=== PATIENT | male | born 1965 | race Caucasian/White ===

== ENCOUNTER → 2016-07-19 | Outpatient (RCR) ==
--- NOTE | 2016-06-20 11:54 | RS.OPPTDN ---
Subjective Date of Note: 06/20/16 Visit #: 3 Date of Evaluation: 06/14/16 Payer Source: Workman's Comp Treatment Diagnosis: Right RCR Current Subjective/complaints:: Patient reports doing well. Reports discomfort at end range with gentle stretching. Pain Assessment - Pain Description Pain Location: Right shoulder Pain Description: nagging pain Current Pain Intensity: 0 at rest - Heat/Cryotherapy Treatment: Hot Pack (HP [id number] to the right shoulder prior to EX. Patient in sitting. ), Cryotherapy ([id number] to the right shoulder following EX. Patient in sitting. ) Interventions - Exercise/Activities/Manual Therapy Exercises/Activities: Increased time of PROM of right shoulder flexion, scaption , abduction, and short IR and ER. Isometrics for shoulder adduction, extension, biceps, and triceps. Assisted scapular protraction/retraction and elevation/ depression. In sitting, table slides and self stretch into flexion and scaption. Reveiwed isometric shoulder add, ext, biceps and triceps in sitting for HEP. Total minutes of Exercise: 40mins Manual Therapy: NA HOME EXERCISE PROGRAM: PROM and gentle isometrics only(7 weeks post-op) - Charges Total Direct Minutes: 40mins Total Treatment Time: 70mins Procedures billed for this date of service:: HP, EX3, CP Assessment: Patient guarded initially but is able to relax and allow more movement with PROM. Patient Education: Education of diagnosis, Body/Joint mechanics, Home Exercise Program, Home Safety, Activity Modification Patient demonstrates compliance with HEP?: Yes Short Term Goals Goal #1: Right AAROM shoulder flexion 120 degrees. Goal to be met by: 07/01/16 Progress towards Goal:: Progressing Goal #2: Right AAROM shoulder abduction 100 degrees. Goal to be met by: 07/01/16 Progress towards Goal:: Progressing Goal #3: Right shoulder AA external rotation 45 degrees. Goal to be met by: 07/01/16 Goal #4: Pateint independent in beginning HEP. Goal to be met by: 07/01/16 Progress towards Goal:: Met [facility] Goals Goal #1: Patient independent with DC HEP. Goal to be met by: 07/22/16 Goal #2: Right shoulder AROM WFLs Goal to be met by: 07/22/16 Goal #3: Patient able to use RUE for all functional activities without pain. Goal to be met by: 07/22/16 Goal #4: Patient able to return to work without restrictions. Goal to be met by: 07/22/16 Plan PLAN OF CARE EXPIRES ON:: 07/22/16 ORDER # VISITS AND/OR THROUGH DATE: 07/22/2016 PLAN: Continue Plan of Care (Continue protocol to increase ROM and progress light isometric and AA exercise.)
--- NOTE | 2016-06-22 14:50 | RS.OPPTDN ---
Subjective Date of Note: 06/22/16 Visit #: 4 Date of Evaluation: 06/14/16 Payer Source: Workman's Comp Treatment Diagnosis: Right RCR Current Subjective/complaints:: Patient reports an increase in soreness in the right shoulder following last session. Reports he is pleased with increase in PROM today. Pain Assessment - Pain Description Pain Location: Right shoulder Pain Description: nagging pain Current Pain Intensity: 0 at rest - Heat/Cryotherapy Treatment: Hot Pack ([id number] to the right shoulder prior to EX. Patient supine. ), Cryotherapy Interventions - Exercise/Activities/Manual Therapy Exercises/Activities: Increased time of PROM of right shoulder flexion, scaption , abduction, and short IR and ER. Isometrics for shoulder adduction, extension, biceps, and triceps. Assisted scapular protraction/retraction and elevation/ depression. In sitting, scap retraction and elevation. Reveiwed Codmans and passive stretch with table slides. Total minutes of Exercise: 40mins Manual Therapy: NA HOME EXERCISE PROGRAM: PROM and gentle isometrics only(7 weeks post-op) - Charges Total Direct Minutes: 40mins Total Treatment Time: 55mins Procedures billed for this date of service:: HP, EX3 Assessment: Patient progressing well with exercise. Patient Education: Home Exercise Program Patient demonstrates compliance with HEP?: Yes Short Term Goals Goal #1: Right AAROM shoulder flexion 120 degrees. Goal to be met by: 07/01/16 Progress towards Goal:: Progressing Goal #2: Right AAROM shoulder abduction 100 degrees. Goal to be met by: 07/01/16 Progress towards Goal:: Progressing Goal #3: Right shoulder AA external rotation 45 degrees. Goal to be met by: 07/01/16 Goal #4: Pateint independent in beginning HEP. Goal to be met by: 07/01/16 Progress towards Goal:: Met Advertising Writer Goals Goal #1: Patient independent with DC HEP. Goal to be met by: 07/22/16 Goal #2: Right shoulder AROM WFLs Goal to be met by: 07/22/16 Goal #3: Patient able to use RUE for all functional activities without pain. Goal to be met by: 07/22/16 Goal #4: Patient able to return to work without restrictions. Goal to be met by: 07/22/16 Plan PLAN OF CARE EXPIRES ON:: 07/22/16 ORDER # VISITS AND/OR THROUGH DATE: 07/22/2016 PLAN: Continue Plan of Care
--- NOTE | 2016-06-24 13:22 | RS.OPPTDN ---
Subjective Date of Note: 06/24/16 Visit #: 5 Date of Evaluation: 06/14/16 Payer Source: Workman's Comp Treatment Diagnosis: Right RCR Current Subjective/complaints:: Patient reports ROM increased following isometrics. Pain Assessment - Pain Description Pain Location: Right shoulder Pain Description: nagging pain Current Pain Intensity: 0 at rest - Heat/Cryotherapy Treatment: Hot Pack ([id number] to the right shoulder prior to EX. Patient in sitting. ) Interventions - Exercise/Activities/Manual Therapy Exercises/Activities: Increased time of PROM of right shoulder flexion, scaption , abduction, and short IR and ER. Isometrics for shoulder adduction, extension, biceps, and triceps. Began isometric shoulder IR and light ER, multiple sets of 5reps. Assisted scapular protraction/retraction and elevation/depression. Reviewed HEP and patient given copies of new EX. Total minutes of Exercise: 45mins Manual Therapy: NA HOME EXERCISE PROGRAM: PROM and gentle isometrics only. - Objective Findings Observations,measurements,etc.: Passive right shoulder flexion to 148 degrees. - Charges Total Direct Minutes: 45mins Total Treatment Time: 60mins Procedures billed for this date of service:: HP, EX3 Assessment: Patient tolerating progression of isometrics with HEP. Patient Education: Home Exercise Program, Home Safety Patient demonstrates compliance with HEP?: Yes Short Term Goals Goal #1: Right AAROM shoulder flexion 120 degrees. Goal to be met by: 07/01/16 Progress towards Goal:: Progressing Goal #2: Right AAROM shoulder abduction 100 degrees. Goal to be met by: 07/01/16 Progress towards Goal:: Progressing Goal #3: Right shoulder AA external rotation 45 degrees. Goal to be met by: 07/01/16 Goal #4: Pateint independent in beginning HEP. Goal to be met by: 07/01/16 Progress towards Goal:: Met [facility] Goals Goal #1: Patient independent with DC HEP. Goal to be met by: 07/22/16 Progress towards goal: Progressing Goal #2: Right shoulder AROM WFLs Goal to be met by: 07/22/16 Goal #3: Patient able to use RUE for all functional activities without pain. Goal to be met by: 07/22/16 Goal #4: Patient able to return to work without restrictions. Goal to be met by: 07/22/16 Plan PLAN OF CARE EXPIRES ON:: 07/22/16 ORDER # VISITS AND/OR THROUGH DATE: 07/22/2016 PLAN: Continue Plan of Care
--- NOTE | 2016-06-27 11:26 | RS.OPPTDN ---
Subjective Date of Note: 06/27/16 Visit #: 6 Date of Evaluation: 06/14/16 Payer Source: Workman's Comp Treatment Diagnosis: Right RCR Current Subjective/complaints:: Patient reports only having aching discomfort , no sharp pain.He reports doing scapular motion with R UE on table top is uncomfortable. Pain Assessment - Pain Description Pain Location: Right shoulder Pain Description: nagging pain Current Pain Intensity: 0 at rest - Heat/Cryotherapy Treatment: Hot Pack (20 mins. priorto exercises) Interventions - Exercise/Activities/Manual Therapy Exercises/Activities: 35 mins total of PROM ,isometrics in all planes, progressed to upright PROM of scaption,abduction,IR/ER.HEP review,and precautions dsicussed at end of sesion. Total minutes of Exercise: 35 Manual Therapy: NA Total minutes of Manual Therapy: 0 HOME EXERCISE PROGRAM: PROM and gentle isometrics only.Biceps/triceps strengthening with elbow at side. - Charges Total Direct Minutes: 35 Total Treatment Time: 55 Procedures billed for this date of service:: hp,ex 2 Assessment: Patient reports stretch discomfort only,no sharp pain with exerises today.He is more guarded today with doing exercises in upright position ,but this is new to him.He does relax more as the exercises progress.He is attentive and motivated to improve. Patient Education: Education of diagnosis, Body/Joint mechanics, Home Exercise Program, Home Safety, Activity Modification, Education of Plan of Care Patient demonstrates compliance with HEP?: Yes Short Term Goals Goal #1: Right AAROM shoulder flexion 120 degrees. Goal to be met by: 07/01/16 Progress towards Goal:: Progressing Goal #2: Right AAROM shoulder abduction 100 degrees. Goal to be met by: 07/01/16 Progress towards Goal:: Progressing Goal #3: Right shoulder AA external rotation 45 degrees. Goal to be met by: 07/01/16 Progress towards Goal:: Progressing Goal #4: Pateint independent in beginning HEP. Goal to be met by: 07/01/16 Progress towards Goal:: Met [facility] Goals Goal #1: Patient independent with DC HEP. Goal to be met by: 07/22/16 Progress towards goal: Progressing Goal #2: Right shoulder AROM WFLs Goal to be met by: 07/22/16 Goal #3: Patient able to use RUE for all functional activities without pain. Goal to be met by: 07/22/16 Goal #4: Patient able to return to work without restrictions. Goal to be met by: 07/22/16 Plan PLAN OF CARE EXPIRES ON:: 07/22/16 ORDER # VISITS AND/OR THROUGH DATE: 07/22/2016 PLAN: Continue Plan of Care
--- NOTE | 2016-06-29 13:26 | RS.OPPTDN ---
Subjective Date of Note: 06/29/16 Visit #: 7 Date of Evaluation: 06/14/16 Payer Source: Workman's Comp Treatment Diagnosis: Right RCR Current Subjective/complaints:: Patient reports feeling good following exercise today. Pain Assessment - Pain Description Pain Location: Right shoulder Pain Description: nagging pain Current Pain Intensity: 0 at rest, discomfort at end range with stretching. - Heat/Cryotherapy Treatment: Hot Pack ([id number] to the right shoulder prior to EX. Patient in supine. ) Interventions - Exercise/Activities/Manual Therapy Exercises/Activities: 45mins total. PROM of the right shoulder all directions. Isometrics in all planes with elbow at side, multiple reps. Progressed to shoulder at 90 degrees flexion for isometric extension, horz add, and horiz abd. Upright PROM of scaption and abduction. Assisted with wand for chest press , short flex/ext, and short IR/ER. Scapular pro/retraction, elevation/ depression. In sitting, table slides and passive flexion and scaption stretch. Total minutes of Exercise: 45mins Manual Therapy: NA HOME EXERCISE PROGRAM: PROM and gentle isometrics only.Biceps/triceps strengthening with elbow at side. Isometric biceps, triceps, shoulde add and extension. - Charges Total Direct Minutes: 45mins Total Treatment Time: 60mins Procedures billed for this date of service:: HP, EX3 Assessment: Patient progressing with active assisted exercises. He is motivated to progress and aware of safety precautions. Patient Education: Home Exercise Program, Home Safety, Activity Modification Patient demonstrates compliance with HEP?: Yes Short Term Goals Goal #1: Right AAROM shoulder flexion 120 degrees. Goal to be met by: 07/01/16 Progress towards Goal:: Progressing Goal #2: Right AAROM shoulder abduction 100 degrees. Goal to be met by: 07/01/16 Progress towards Goal:: Progressing Goal #3: Right shoulder AA external rotation 45 degrees. Goal to be met by: 07/01/16 Progress towards Goal:: Progressing Goal #4: Pateint independent in beginning HEP. Goal to be met by: 07/01/16 Progress towards Goal:: Met Typing Checker Goals Goal #1: Patient independent with DC HEP. Goal to be met by: 07/22/16 Progress towards goal: Progressing Goal #2: Right shoulder AROM WFLs Goal to be met by: 02/03/17 Goal #3: Patient able to use RUE for all functional activities without pain. Goal to be met by: 07/22/16 Goal #4: Patient able to return to work without restrictions. Goal to be met by: 07/22/16 Plan PLAN OF CARE EXPIRES ON:: 07/22/16 ORDER # VISITS AND/OR THROUGH DATE: 07/22/2016 PLAN: Continue Plan of Care
--- NOTE | 2016-07-01 13:16 | RS.OPPTDN ---
Subjective Date of Note: 07/01/16 Visit #: 8 Date of Evaluation: 06/14/16 Payer Source: Workman's Comp Treatment Diagnosis: Right RCR Current Subjective/complaints:: Patient reports ROM has improved since increasing isometrics in therapy. Pain Assessment - Pain Description Pain Location: Right shoulder Pain Description: nagging pain Current Pain Intensity: 0 at rest, discomfort at end range with stretching. - Heat/Cryotherapy Treatment: Hot Pack ([id number] to the right shoulder prior to EX. Patient in sitting. ) Interventions - Exercise/Activities/Manual Therapy Exercises/Activities: 45mins total. PROM of the right shoulder all directions. Isometrics in all planes with elbow at side, multiple reps. Progressed to shoulder at 90 degrees flexion for isometric extension, horz add, and horiz abd. Upright PROM of scaption and abduction. Assisted with wand for chest press , short flex/ext, and short IR/ER. Scapular pro/retraction, elevation/ depression. Ended with additional PROM of the right shoulder. Total minutes of Exercise: 45mins Manual Therapy: NA HOME EXERCISE PROGRAM: PROM and gentle isometrics only.Biceps/triceps strengthening with elbow at side. Isometric biceps, triceps, shoulde add and extension. - Charges Total Direct Minutes: 45mis Total Treatment Time: 50mins Procedures billed for this date of service:: EX3 Assessment: Patient progressing well with exercise and with PROM. Patient Education: Home Exercise Program, Home Safety, Activity Modification Patient demonstrates compliance with HEP?: Yes Short Term Goals Goal #1: Right AAROM shoulder flexion 120 degrees. Goal to be met by: 07/01/16 Progress towards Goal:: Progressing Goal #2: Right AAROM shoulder abduction 100 degrees. Goal to be met by: 07/01/16 Progress towards Goal:: Progressing Goal #3: Right shoulder AA external rotation 45 degrees. Goal to be met by: 07/01/16 Progress towards Goal:: Progressing Goal #4: Pateint independent in beginning HEP. Goal to be met by: 07/01/16 Progress towards Goal:: Met [employer] Assistant Goals Goal #1: Patient independent with DC HEP. Goal to be met by: 07/22/16 Progress towards goal: Progressing Goal #2: Right shoulder AROM WFLs Goal to be met by: 07/22/16 Goal #3: Patient able to use RUE for all functional activities without pain. Goal to be met by: 07/22/16 Goal #4: Patient able to return to work without restrictions. Goal to be met by: 07/22/16 Plan PLAN OF CARE EXPIRES ON:: 07/22/16 ORDER # VISITS AND/OR THROUGH DATE: 07/22/2016 PLAN: Continue Plan of Care
--- NOTE | 2016-07-04 11:32 | RS.OPPTDN ---
Subjective Date of Note: 07/04/16 Visit #: 9 Date of Evaluation: 06/14/16 (Sx. 11-09-16) Payer Source: Workman's Comp Treatment Diagnosis: Right RCR Current Subjective/complaints:: Patient reports right shoulder feels tight today. States he is pleased with ROM after stretching. States he working on HEP as instructed. Pain Assessment - Pain Description Pain Location: Right shoulder Pain Description: nagging pain Current Pain Intensity: 0 at rest, discomfort at end range with stretching. Interventions - Exercise/Activities/Manual Therapy Exercises/Activities: 45mins total. PROM of the right shoulder all directions. Isometrics in all planes with elbow at side, multiple reps. Wand for chest press and short range overhead flexion. Isometrics with right shoulder at 90 degrees flexion. In sitting, PROM into flexion, scaption, abduction, and horizontal abduction. Biceps curl 3#, 3s/10reps. AA flexion in sitting, patient working at approx 25%. Began standing cuff series, 4 direction, 2s/10reps each. Total minutes of Exercise: 45mins Manual Therapy: NA HOME EXERCISE PROGRAM: PROM and gentle isometrics only.Biceps/triceps strengthening with elbow at side. Isometric biceps, triceps, shoulde add and extension. Biceps curl with small weight. Cuff series, no weight. - Charges Total Direct Minutes: 45mins Total Treatment Time: 45mins Procedures billed for this date of service:: EX3 Assessment: Patient progressing well. Patient Education: Home Exercise Program Comments: Reviewed safety. Patient at 10 weeks post-op this week. Patient demonstrates compliance with HEP?: Yes Short Term Goals Goal #1: Right AAROM shoulder flexion 120 degrees. Goal to be met by: 07/01/16 Progress towards Goal:: Progressing Goal #2: Right AAROM shoulder abduction 100 degrees. Goal to be met by: 07/01/16 Progress towards Goal:: Progressing Goal #3: Right shoulder AA external rotation 45 degrees. Goal to be met by: 07/01/16 Progress towards Goal:: Progressing Goal #4: Pateint independent in beginning HEP. Goal to be met by: 07/01/16 Progress towards Goal:: Met [facility] Goals Goal #1: Patient independent with DC HEP. Goal to be met by: 07/22/16 Progress towards goal: Progressing Goal #2: Right shoulder AROM WFLs Goal to be met by: 07/22/16 Goal #3: Patient able to use RUE for all functional activities without pain. Goal to be met by: 07/22/16 Goal #4: Patient able to return to work without restrictions. Goal to be met by: 07/22/16 Plan PLAN OF CARE EXPIRES ON:: 07/22/16 ORDER # VISITS AND/OR THROUGH DATE: 07/22/2016 PLAN: Continue Plan of Care
--- NOTE | 2016-07-06 13:27 | RS.OPPTDN ---
Subjective Date of Note: 07/06/16 Visit #: 10 Date of Evaluation: 06/14/16 (Sx. 11-09-16) Payer Source: Workman's Comp Treatment Diagnosis: Right RCR Current Subjective/complaints:: Patient report increasing his HEP as instructed. States he is working on limited cuff series. Pain Assessment - Pain Description Pain Location: Right shoulder Pain Description: nagging pain Current Pain Intensity: 0 at rest, discomfort at end range with stretching. - Heat/Cryotherapy Treatment: Hot Pack ([id number] to the right shoulder prior to EX. Patient in sitting. ) Interventions - Exercise/Activities/Manual Therapy Exercises/Activities: 45mins total. PROM of the right shoulder all directions. Isometrics in all planes with elbow at side, multiple reps. Wand for chest press and short range overhead flexion. Isometrics with right shoulder at 90 degrees flexion. In sitting, PROM into flexion, scaption, abduction, and horizontal abduction. AAROM with patient participating 25% into flexion, scaption, and extension. Standing cuff series, 4 direction, 2s/10reps each. Began overhead pulleys. Total minutes of Exercise: 45mins Manual Therapy: NA HOME EXERCISE PROGRAM: PROM and gentle isometrics only.Biceps/triceps strengthening with elbow at side. Isometric biceps, triceps, shoulde add and extension. Biceps curl with small weight. Cuff series, no weight. - Charges Total Direct Minutes: 45mins Total Treatment Time: 65mins Procedures billed for this date of service:: HP, EX3 Assessment: Patient progressing with exercise per protocol. Patient Education: Body/Joint mechanics, Home Exercise Program, Activity Modification Comments: Reveiwed safety with HEP. Patient demonstrates compliance with HEP?: Yes Short Term Goals Goal #1: Right AAROM shoulder flexion 120 degrees. Goal to be met by: 07/01/16 Progress towards Goal:: Progressing Goal #2: Right AAROM shoulder abduction 100 degrees. Goal to be met by: 07/01/16 Progress towards Goal:: Progressing Goal #3: Right shoulder AA external rotation 45 degrees. Goal to be met by: 07/01/16 Progress towards Goal:: Progressing Goal #4: Pateint independent in beginning HEP. Goal to be met by: 07/01/16 Progress towards Goal:: Met [facility]ter Goals Goal #1: Patient independent with DC HEP. Goal to be met by: 07/22/16 Progress towards goal: Progressing Goal #2: Right shoulder AROM WFLs Goal to be met by: 07/22/16 Goal #3: Patient able to use RUE for all functional activities without pain. Goal to be met by: 07/22/16 Goal #4: Patient able to return to work without restrictions. Goal to be met by: 07/22/16 Plan PLAN OF CARE EXPIRES ON:: 07/22/16 ORDER # VISITS AND/OR THROUGH DATE: 07/22/2016 PLAN: Continue Plan of Care
--- NOTE | 2016-07-08 10:22 | RS.OPPTDN ---
Subjective Date of Note: 07/08/16 Visit #: 11 Date of Evaluation: 06/14/16 (Sx. 11-09-16) Payer Source: Workman's Comp Treatment Diagnosis: Right RCR Current Subjective/complaints:: Reports doing his HEP regularly. Pain Assessment - Pain Description Pain Location: Right shoulder Pain Description: Dull, Aching Pain Description: nagging pain Current Pain Intensity: 0 at rest, discomfort at end range with stretching. - Heat/Cryotherapy Treatment: Hot Pack (20 miins. to R shoulder ,prior to exercises) Interventions - Exercise/Activities/Manual Therapy Exercises/Activities: 40 mins total. PROM of the right shoulder all directions. Isometrics in all planes with elbow at side, multiple reps. Wand for chest press and short range overhead flexion. Isometrics with right shoulder at 90 degrees flexion. In sitting, PROM into flexion, scaption, abduction, and horizontal abduction. AAROM with patient participating 25% into flexion, scaption, and extension. Standing cuff series, 4 direction, 2s/10reps each.Ended with overhead pulleys. Total minutes of Exercise: 40 Manual Therapy: NA Total minutes of Manual Therapy: 0 HOME EXERCISE PROGRAM: PROM and gentle isometrics only.Biceps/triceps strengthening with elbow at side. Isometric biceps, triceps, shoulde add and extension. Biceps curl with small weight. Cuff series, no weight. - Charges Total Direct Minutes: 40 Total Treatment Time: 60 Procedures billed for this date of service:: hp,ex 3 Assessment: Progressing well,has good return demo of HEP,is compliant to RTC protocol,is 10 1/2 weeks post-op.His ER has firm end feel today,but instructed to not push this motion ,he understands. Patient Education: Education of diagnosis, Body/Joint mechanics, Home Exercise Program, Home Safety, Activity Modification, Education of Plan of Care Patient demonstrates compliance with HEP?: Yes Short Term Goals Goal #1: Right AAROM shoulder flexion 120 degrees. Goal to be met by: 07/01/16 Progress towards Goal:: Progressing Goal #2: Right AAROM shoulder abduction 100 degrees. Goal to be met by: 07/01/16 Progress towards Goal:: Progressing Goal #3: Right shoulder AA external rotation 45 degrees. Goal to be met by: 07/01/16 Progress towards Goal:: Progressing Goal #4: Pateint independent in beginning HEP. Goal to be met by: 07/01/16 Progress towards Goal:: Met [employer] Goals Goal #1: Patient independent with DC HEP. Goal to be met by: 07/22/16 Progress towards goal: Progressing Goal #2: Right shoulder AROM WFLs Goal to be met by: 07/22/16 Goal #3: Patient able to use RUE for all functional activities without pain. Goal to be met by: 07/22/16 Goal #4: Patient able to return to work without restrictions. Goal to be met by: 07/22/16 Plan PLAN OF CARE EXPIRES ON:: 07/22/16 ORDER # VISITS AND/OR THROUGH DATE: 07/22/2016 PLAN: Continue Plan of Care
--- NOTE | 2016-07-11 15:43 | RS.OPPTDN ---
Subjective Date of Note: 07/11/16 Visit #: 12 Date of Evaluation: 06/14/16 (Sx. 11-09-16) Payer Source: Workman's Comp Treatment Diagnosis: Right RCR Current Subjective/complaints:: Patient reports having a rough night and right shoulder is stiff today. Pain Assessment - Pain Description Pain Location: Right shoulder Pain Description: Dull, Aching Pain Description: nagging pain Current Pain Intensity: 0 at rest, discomfort at end range with stretching. - Heat/Cryotherapy Treatment: Hot Pack ([id number] to the right shoulder prior to EX. Patient in sitting. ) Interventions - Exercise/Activities/Manual Therapy Exercises/Activities: 45mins total. PROM of the right shoulder all directions. Isometrics in all planes with elbow at side, multiple reps. Wand for chest press and short range overhead flexion. Isometrics with right shoulder at 90 degrees flexion. In sitting, PROM into flexion, scaption, abduction, and horizontal abduction. AAROM with patient into flexion, scaption, and extension. Began ball on the wall. Ended with overhead pulleys. Total minutes of Exercise: 45mins Manual Therapy: NA HOME EXERCISE PROGRAM: PROM and gentle isometrics only.Biceps/triceps strengthening with elbow at side. Isometric biceps, triceps, shoulde add and extension. Biceps curl with small weight. Cuff series, no weight. - Charges Total Direct Minutes: 45mins Total Treatment Time: 65mins Procedures billed for this date of service:: HP, EX3 Assessment: Patient progressing with AAROM exercises. Patient Education: Body/Joint mechanics, Home Exercise Program, Home Safety, Activity Modification Patient demonstrates compliance with HEP?: Yes Short Term Goals Goal #1: Right AAROM shoulder flexion 120 degrees. Goal to be met by: 07/01/16 (100%) Progress towards Goal:: Met Goal #2: Right AAROM shoulder abduction 100 degrees. Goal to be met by: 07/01/16 Progress towards Goal:: Progressing Goal #3: Right shoulder AA external rotation 45 degrees. Goal to be met by: 07/01/16 Progress towards Goal:: Progressing Goal #4: Pateint independent in beginning HEP. Goal to be met by: 07/01/16 Progress towards Goal:: Met [facility] Goals Goal #1: Patient independent with DC HEP. Goal to be met by: 07/22/16 Progress towards goal: Progressing Goal #2: Right shoulder AROM WFLs Goal to be met by: 07/22/16 Goal #3: Patient able to use RUE for all functional activities without pain. Goal to be met by: 07/22/16 Goal #4: Patient able to return to work without restrictions. Goal to be met by: 07/22/16 Plan PLAN OF CARE EXPIRES ON:: 07/22/16 ORDER # VISITS AND/OR THROUGH DATE: 07/22/2016 PLAN: Continue Plan of Care
--- NOTE | 2016-07-13 11:47 | RS.OPPTDN ---
Subjective Date of Note: 07/13/16 Visit #: 13 Date of Evaluation: 06/14/16 (Sx. 11-09-16) Payer Source: Workman's Comp Treatment Diagnosis: Right RCR Current Subjective/complaints:: Reports he can tell we increased exercises today. States he does not feel he needs heat or ice. Pain Assessment - Pain Description Pain Location: Right shoulder Pain Description: Dull, Aching Pain Description: nagging pain Current Pain Intensity: 0 at rest, discomfort at end range with stretching. Interventions - Exercise/Activities/Manual Therapy Exercises/Activities: 55mins total. PROM of the right shoulder all directions. Isometrics in all planes with elbow at side, multiple reps. Wand for chest press and short range overhead flexion. Isometrics with right shoulder at 90 degrees flexion. Began serratus punch 5# , 3s/10reps. In sitting, PROM into flexion, scaption, abduction, and horizontal abduction. AAROM with patient into flexion, scaption, and extension. Began wand to shoulder height. 1/2# weight for short low level shoulder flexion. Added 1# to cuff series, 2s/10reps x4 directions. Multi-gym station of scap retract 20#, 2s/10reps. Yellow theraband for shoulder range shoulder flex, ext, add, and abd, 2s/10reps each. Blue theraband for scap retraction, 2s/10reps. Total minutes of Exercise: 55mins Manual Therapy: NA HOME EXERCISE PROGRAM: PROM and gentle isometrics only.Biceps/triceps strengthening with elbow at side. Isometric biceps, triceps, shoulder add and extension. Biceps curl with small weight. Cuff series, light weight. Yellow theraband shoulder x4 direct. Blue theraband scap retract. - Charges Total Direct Minutes: 55mins Total Treatment Time: 55mins Procedures billed for this date of service:: EXx4 Assessment: Patient progressing with strengthening exercises. Patient Education: Body/Joint mechanics, Home Exercise Program, Home Safety Patient demonstrates compliance with HEP?: Yes Short Term Goals Goal #1: Right AAROM shoulder flexion 120 degrees. Goal to be met by: 07/01/16 (100%) Progress towards Goal:: Met Goal #2: Right AAROM shoulder abduction 100 degrees. Goal to be met by: 07/01/16 Progress towards Goal:: Progressing Goal #3: Right shoulder AA external rotation 45 degrees. Goal to be met by: 07/01/16 Progress towards Goal:: Progressing Goal #4: Patient independent in beginning HEP. Goal to be met by: 07/01/16 Progress towards Goal:: Met [facility] Goals Goal #1: Patient independent with DC HEP. Goal to be met by: 07/22/16 Progress towards goal: Progressing Goal #2: Right shoulder AROM WFLs Goal to be met by: 07/22/16 Goal #3: Patient able to use RUE for all functional activities without pain. Goal to be met by: 07/22/16 Goal #4: Patient able to return to work without restrictions. Goal to be met by: 07/22/16 Plan PLAN OF CARE EXPIRES ON:: 07/22/16 ORDER # VISITS AND/OR THROUGH DATE: 07/22/2016 PLAN: Continue Plan of Care
--- NOTE | 2016-07-15 11:25 | RS.OPPTDN ---
Subjective Date of Note: 07/15/16 Visit #: 14 Date of Evaluation: 06/14/16 (Sx. 11-09-16) Payer Source: Workman's Comp Treatment Diagnosis: Right RCR Current Subjective/complaints:: Patient asks for HP prior to EX. States he feels he does better. Reports fatigue after resistve exercise but is glad to progress exercise. Pain Assessment - Pain Description Pain Location: Right shoulder Pain Description: Dull, Aching Pain Description: nagging pain Current Pain Intensity: 0 at rest, discomfort at end range with stretching. - Heat/Cryotherapy Treatment: Hot Pack ([id number] to the right shoulder prior to EX. Patient in sitting. ) Interventions - Exercise/Activities/Manual Therapy Exercises/Activities: 55mins total. Increased time on PROM of the right shoulder all directions, including contract/relax. Isometrics in all planes with elbow at side, multiple reps. 3# wand for chest press and short range overhead flexion. Isometrics with right shoulder at 90 degrees flexion. Serratus punch holding 4# ball with UE's, 2s/10reps. Began red theraband for shoulder extension and forward press, supine, 2s/10reps each. In sitting, PROM into flexion, scaption, abduction, and horizontal abduction. AAROM with patient into flexion, scaption, and extension. Wand to shoulder height. in sitting, red theraband for right scap retraction and forward press, 10reps each. Total minutes of Exercise: 55mins Manual Therapy: NA HOME EXERCISE PROGRAM: PROM and gentle isometrics only.Biceps/triceps strengthening with elbow at side. Isometric biceps, triceps, shoulder add and extension. Biceps curl with small weight. Cuff series, light weight. Yellow theraband shoulder x4 direct. Blue theraband scap retract. - Charges Total Direct Minutes: 55mins Total Treatment Time: 67mins Procedures billed for this date of service:: HP, EX4 Assessment: Patient progressing with ROM and strengthening activity. Patient Education: Body/Joint mechanics, Home Exercise Program, Home Safety, Activity Modification Patient demonstrates compliance with HEP?: Yes Short Term Goals Goal #1: Right AAROM shoulder flexion 120 degrees. Goal to be met by: 07/01/16 (100%) Progress towards Goal:: Met Goal #2: Right AAROM shoulder abduction 100 degrees. Goal to be met by: 07/01/16 (100%) Progress towards Goal:: Met Goal #3: Right shoulder AA external rotation 45 degrees. Goal to be met by: 07/01/16 (100%) Progress towards Goal:: Met Goal #4: Patient independent in beginning HEP. Goal to be met by: 07/01/16 (100%) Progress towards Goal:: Met [employer] Goals Goal #1: Patient independent with DC HEP. Goal to be met by: 07/22/16 Progress towards goal: Progressing Goal #2: Right shoulder AROM WFLs Goal to be met by: 07/22/16 Goal #3: Patient able to use RUE for all functional activities without pain. Goal to be met by: 07/22/16 Progress towards goal: Progressing Goal #4: Patient able to return to work without restrictions. Goal to be met by: 07/22/16 Plan PLAN OF CARE EXPIRES ON:: 07/22/16 ORDER # VISITS AND/OR THROUGH DATE: 07/22/2016 PLAN: Continue Plan of Care
--- NOTE | 2016-07-19 13:19 | RS.OPPTDN ---
Subjective Date of Note: 07/19/16 Visit #: 15 Date of Evaluation: 06/14/16 (Sx. 11-09-16) Payer Source: Workman's Comp Treatment Diagnosis: Right RCR Current Subjective/complaints:: Patient reports stiffness right shoulder joint with ROM, but progressing exercise. Pain Assessment - Pain Description Pain Location: Right shoulder Pain Description: Dull, Aching Pain Description: nagging pain Current Pain Intensity: 0 at rest, discomfort at end range with stretching. - Heat/Cryotherapy Treatment: Hot Pack ([id number] to the right shoulder prior to EX. Patient in sitting. ) Interventions - Exercise/Activities/Manual Therapy Exercises/Activities: 55mins total. Increased time on PROM of the right shoulder all directions, including contract/relax. Isometrics in all planes with elbow at side, multiple reps. 3# wand for chest press and short range overhead flexion. Isometrics with right shoulder at 90 degrees flexion. Serratus punch 5# dumbell, 2s/10reps. Red theraband for shoulder flexion, extension and forward press. Holding 2# ball at 90 degrees shoulder flexion for proprioception exercise. In sitting, PROM into flexion, scaption, abduction, and horizontal abduction. AAROM with patient into flexion, scaption, and extension. Wand to shoulder height. In standing, multi-gym for scap retraction 20#, 2s/10reps. Modified wall push-ups. Red theraband for shoulder x4 dirctions 10reps each. Total minutes of Exercise: 55mins Manual Therapy: NA HOME EXERCISE PROGRAM: PROM and gentle isometrics only.Biceps/triceps strengthening with elbow at side. Isometric biceps, triceps, shoulder add and extension. Biceps curl with small weight. Cuff series, 1# weight. Red theraband shoulder x4 direct. Blue theraband scap retract. - Charges Total Direct Minutes: 55mins Total Treatment Time: 70mins Procedures billed for this date of service:: HP, EX4 Assessment: Patient progressing with light strengtheing. Patient Education: Body/Joint mechanics, Home Exercise Program, Home Safety, Activity Modification Patient demonstrates compliance with HEP?: Yes Short Term Goals Goal #1: Right AAROM shoulder flexion 120 degrees. Goal to be met by: 07/01/16 (100%) Progress towards Goal:: Met Goal #2: Right AAROM shoulder abduction 100 degrees. Goal to be met by: 07/01/16 (100%) Progress towards Goal:: Met Goal #3: Right shoulder AA external rotation 45 degrees. Goal to be met by: 07/01/16 (100%) Progress towards Goal:: Met Goal #4: Patient independent in beginning HEP. 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 Goal to be met by: 07/22/16 Progress towards goal: Progressing Goal #2: Right shoulder AROM WFLs Goal to be met by: 07/22/16 Goal #3: Patient able to use RUE for all functional activities without pain. Goal to be met by: 07/22/16 Progress towards goal: Progressing Goal #4: Patient able to return to work without restrictions. Goal to be met by: 07/22/16 Plan PLAN OF CARE EXPIRES ON:: 07/22/16 ORDER # VISITS AND/OR THROUGH DATE: 07/22/2016 PLAN: Continue Plan of Care
== END ==
PROVIDERS: ATTEND Orthopaedic Surgery
DX: S46.011D Strain of muscle(s) and tendon(s) of the rotator cuff of right shoulder, subsequent encounter (principal)

== ENCOUNTER 2016-08-15 10:00 | Outpatient (RCR) ==
--- NOTE | 2016-07-20 12:12 | RS.OPPTDN ---
Subjective Date of Note: 07/20/16 Visit #: 16 Date of Evaluation: 06/14/16 (Sx. 11-09-16) Payer Source: Workman's Comp Treatment Diagnosis: Right RCR Current Subjective/complaints:: Reports right shoulder joint tightness that limits some movement with exercise. Pain Assessment - Pain Description Pain Location: Right shoulder Pain Description: nagging pain Current Pain Intensity: 0 at rest, discomfort at end range with stretching. - Heat/Cryotherapy Treatment: Hot Pack ([id number] to the right shoulder prior to EX. Patient in sitting. ) Interventions - Exercise/Activities/Manual Therapy Exercises/Activities: 48mins total. Increased time on PROM of the right shoulder all directions, including contract/relax. Isometrics in all planes with UE at neutral and with shoulder at 90 degrees flexion and abduction. 3# wand for chest press and short range overhead flexion. Serratus punch 5# dumbell , 2s/10reps. Red theraband for shoulder flexion, extension, forward press, IR and ER. Holding 2# ball at 90 degrees shoulder flexion for proprioception exercise. In standing, multi-gym for scap retraction 20#, 3s/10reps. Right shoulder extension with 5# 2s/10reps. Modified wall push-ups. Red theraband for shoulder x4 directions 10reps each. Doorway chest stretch, 3 positions. Total minutes of Exercise: 48mins Manual Therapy: NA HOME EXERCISE PROGRAM: PROM and gentle isometrics only.Biceps/triceps strengthening with elbow at side. Isometric biceps, triceps, shoulder add and extension. Biceps curl with small weight. Cuff series, 1# weight. Red theraband shoulder x4 direct. Blue theraband scap retract. - Charges Total Direct Minutes: 48mins Total Treatment Time: 63mins Procedures billed for this date of service:: HP, EX3 Assessment: Patient progressing well with strengthening. Will need to increase end ROM to further AROM and functional activities. Patient Education: Education of diagnosis, Body/Joint mechanics, Home Exercise Program Patient demonstrates compliance with HEP?: Yes Short Term Goals Goal #1: Right AAROM shoulder flexion 120 degrees. Goal to be met by: 07/01/16 (100%) Progress towards Goal:: Met Goal #2: Right AAROM shoulder abduction 100 degrees. Goal to be met by: 07/01/16 (100%) Progress towards Goal:: Met Goal #3: Right shoulder AA external rotation 45 degrees. Goal to be met by: 07/01/16 (100%) Progress towards Goal:: Met Goal #4: Patient independent in beginning HEP. Goal to be met by: 07/01/16 (100%) Progress towards Goal:: Met [facility] Goals Goal #1: Patient independent with DC HEP. Goal to be met by: 07/22/16 Progress towards goal: Progressing Goal #2: Right shoulder AROM WFLs Goal to be met by: 07/22/16 Goal #3: Patient able to use RUE for all functional activities without pain. Goal to be met by: 07/22/16 Progress towards goal: Progressing Goal #4: Patient able to return to work without restrictions. Goal to be met by: 07/22/16 Plan PLAN OF CARE EXPIRES ON:: 07/22/16 ORDER # VISITS AND/OR THROUGH DATE: 07/22/2016 PLAN: Continue Plan of Care (Continue this week. Will take ROM measurements and report progress to physician. Patient may continue therapy as needed with continuation orders from physician.)
--- NOTE | 2016-07-22 11:32 | RS.OPPTDN ---
Subjective Date of Note: 07/22/16 Visit #: 17 Date of Evaluation: 06/14/16 (Sx. 11-09-16) Payer Source: Workman's Comp Treatment Diagnosis: Right RCR Current Subjective/complaints:: Patient reports he saw [facility] [employer] and was told he is on track with progress. States he has orders to continue and progress strengthening. Pain Assessment - Pain Description Pain Location: Right shoulder Pain Description: nagging pain Current Pain Intensity: 0 at rest, discomfort at end range with stretching. - Heat/Cryotherapy Treatment: Hot Pack ([id number] to the right shoulder prior to EX. Patient in sitting. ) Interventions - Exercise/Activities/Manual Therapy Exercises/Activities: 45mins total. Increased time on PROM of the right shoulder all directions, including contract/relax. Isometrics in all planes with UE at neutral and with shoulder at 90 degrees flexion and abduction. 3# wand for chest press and short range overhead flexion. Serratus punch 5# dumbell , 2s/10reps. Red theraband for shoulder flexion, extension, forward press, IR and ER. Holding 2# ball at 90 degrees shoulder flexion for random proprioception and controlled circles. In sitting, yellow theraband bilateral shoulder ER, 3s/10reps. 1# wand for flexion to just above shoulder height, multiple reps. Cuff series 1#, 4 directions. In standing, multi-gym for scap retraction 20#, 3s/10reps. Modified wall push-ups. Large ball on the wall overhead work. Doorway chest stretch, 3 positions. Total minutes of Exercise: 45mins Manual Therapy: NA HOME EXERCISE PROGRAM: PROM and gentle isometrics only.Biceps/triceps strengthening with elbow at side. Isometric biceps, triceps, shoulder add and extension. Biceps curl with small weight. Cuff series, 1# weight. Red theraband shoulder x4 direct. Blue theraband scap retract. - Charges Total Direct Minutes: 45mins Total Treatment Time: 60mins Procedures billed for this date of service:: HP, EX3 Assessment: Patient progressing with strengthening. Patient Education: Body/Joint mechanics, Home Exercise Program, Activity Modification Patient demonstrates compliance with HEP?: Yes Short Term Goals Goal #1: Right AAROM shoulder flexion 120 degrees. Goal to be met by: 07/01/16 (100%) Progress towards Goal:: Met Goal #2: Right AAROM shoulder abduction 100 degrees. Goal to be met by: 07/01/16 (100%) Progress towards Goal:: Met Goal #3: Right shoulder AA external rotation 45 degrees. Goal to be met by: 07/01/16 (100%) Progress towards Goal:: Met Goal #4: Patient independent in beginning HEP. 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 Goal to be met by: 08/25/16 Progress towards goal: Progressing Goal #2: Right shoulder AROM WFLs Goal to be met by: 08/25/16 Goal #3: Patient able to use RUE for all functional activities without pain. Goal to be met by: 08/25/16 Progress towards goal: Progressing Goal #4: Patient able to return to work without restrictions. Goal to be met by: 08/25/16 Plan PLAN OF CARE EXPIRES ON:: 08/25/16 ORDER # VISITS AND/OR THROUGH DATE: 08/25/2016 PLAN: Continue Plan of Care (Continue and progress strengthening.)
--- NOTE | 2016-07-25 11:27 | RS.OPPTDN ---
Subjective Date of Note: 07/25/16 Visit #: 18 Date of Evaluation: 06/14/16 (Sx. 11-09-16) Payer Source: Workman's Comp Treatment Diagnosis: Right RCR Current Subjective/complaints:: Patient reports his active motion seems to be improving. Pain Assessment - Pain Description Pain Location: Right shoulder Pain Description: nagging pain Current Pain Intensity: 0 at rest, discomfort at end range with stretching. - Heat/Cryotherapy Treatment: Hot Pack ([id number] to the right shoulder prior to EX. Patient in sitting. ) Interventions - Exercise/Activities/Manual Therapy Exercises/Activities: 55mins total. Increased time on PROM of the right shoulder all directions, with patient in supine. Isometrics for contract/relax and stretching. Isometrics in all planes with UE at neutral and with shoulder at 90 degrees flexion and abduction. Increased to 5# wand for chest press and short range overhead flexion. Serratus punch, 2s/10reps. Red theraband for shoulder flexion, extension, forward press, IR and ER. Holding 4# ball at 90 degrees shoulder flexion for random lateral/horizontal abduction. In sitting, AAROM flexion, scaption, and abduction. 1# wand for flexion and abduction to just above shoulder height, multiple reps. Green theraband for scapular retraction, 3s/10reps. In standing, multi-gym for scap retraction 20#, 3s/ 10reps. Cable janina for chest press 5#, 3s/10reps. Ball on the wall with large ball overhead side to side. Doorway chest stretch, 3 positions. Total minutes of Exercise: 55mins Manual Therapy: NA HOME EXERCISE PROGRAM: PROM and gentle isometrics only.Biceps/triceps strengthening with elbow at side. Isometric biceps, triceps, shoulder add and extension. Biceps curl with small weight. Cuff series, 1# weight. Red theraband shoulder x4 direct. Blue theraband scap retract. - Charges Total Direct Minutes: 55mins Total Treatment Time: 70mins Procedures billed for this date of service:: HP, EX4 Assessment: Patient progressing with active and active assist exercises. Patient Education: Home Exercise Program, Home Safety Patient demonstrates compliance with HEP?: Yes Short Term Goals Goal #1: Right AAROM shoulder flexion 120 degrees. Goal to be met by: 07/01/16 (100%) Progress towards Goal:: Met Goal #2: Right AAROM shoulder abduction 100 degrees. Goal to be met by: 07/01/16 (100%) Progress towards Goal:: Met Goal #3: Right shoulder AA external rotation 45 degrees. Goal to be met by: 07/01/16 (100%) Progress towards Goal:: Met Goal #4: Patient independent in beginning HEP. 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 Goal to be met by: 08/25/16 Progress towards goal: Progressing Goal #2: Right shoulder AROM WFLs Goal to be met by: 08/25/16 Progress towards goal: Progressing Goal #3: Patient able to use RUE for all functional activities without pain. Goal to be met by: 08/25/16 Progress towards goal: Progressing Goal #4: Patient able to return to work without restrictions. Goal to be met by: 08/25/16 Plan PLAN OF CARE EXPIRES ON:: 08/25/16 ORDER # VISITS AND/OR THROUGH DATE: 08/25/2016 PLAN: Continue Plan of Care
--- NOTE | 2016-07-27 15:38 | RS.OPPTDN ---
Subjective Date of Note: 07/27/16 Visit #: 19 Date of Evaluation: 06/14/16 (Sx. 11-09-16) Payer Source: Workman's Comp Treatment Diagnosis: Right RCR Current Subjective/complaints:: Patient reports increased soreness right shoulder joint since last session. Pain Assessment - Pain Description Pain Location: Right shoulder Pain Description: nagging pain Current Pain Intensity: 0 at rest, discomfort at end range with stretching. - Heat/Cryotherapy Treatment: Hot Pack ([id number] to the right shoulder prior to EX. Patient in sitting. ) Interventions - Exercise/Activities/Manual Therapy Exercises/Activities: 50mins total. Increased time on PROM of the right shoulder all directions, with patient in supine. Isometrics for contract/relax and stretching. Isometrics in all planes with UE at neutral and with shoulder at 90 degrees flexion and abduction. 5# wand for chest press and short range overhead flexion. Serratus punch with 5# dumbell, 2s/10reps. Red theraband for shoulder flexion, extension, forward press, IR and ER. Red theraband for UE diagonals, 2 directions, 2s/10reps each. Holding 5# ball at 90 degrees shoulder flexion for random lateral/horizontal abduction. In sitting, AAROM flexion, scaption, and abduction. 4# wand for flexion and abduction to just above shoulder height, multiple reps. 1# dumbell for flexion, scaption, and abduction. In standing, green theraband for scapular retraction, 3s/10reps. In standing, multi-gym for scap retraction 20#, 3s/10reps and 30# 1s/10reps. Cable janina for chest press 5#, 3s/10reps. Ball on the wall, 1 1/2# cuff to right wrist, with large ball overhead side to side. Doorway chest stretch, 3 positions and overhead UE stretch at multigym. Red theraband for overhead flexion and extension. Total minutes of Exercise: 50mins Manual Therapy: NA HOME EXERCISE PROGRAM: PROM and gentle isometrics only. Biceps/triceps strengthening with elbow at side. Isometric biceps, triceps, shoulder add and extension. Biceps curl with small weight. Cuff series, 1# weight. Red theraband shoulder x4 direct. Blue theraband scap retract. Red theraband for overhead flexion and extension. Resistive shoulder ROM with light weights. - Charges Total Direct Minutes: 50mins Total Treatment Time: 50mins Procedures billed for this date of service:: EX3 Assessment: Patient progressing with strengthening exercise and active motion above shoulder height. Patient Education: Home Exercise Program, Home Safety, Activity Modification Patient demonstrates compliance with HEP?: Yes Short Term Goals Goal #1: Right AAROM shoulder flexion 120 degrees. Goal to be met by: 07/01/16 (100%) Progress towards Goal:: Met Goal #2: Right AAROM shoulder abduction 100 degrees. Goal to be met by: 07/01/16 (100%) Progress towards Goal:: Met Goal #3: Right shoulder AA external rotation 45 degrees. Goal to be met by: 07/01/16 (100%) Progress towards Goal:: Met Goal #4: Patient independent in beginning HEP. Goal to be met by: 07/01/16 (100%) Progress towards Goal:: Met Cracker Dough Mixer Goals Goal #1: Patient independent with DC HEP. Goal to be met by: 08/25/16 Progress towards goal: Progressing Goal #2: Right shoulder AROM WFLs Goal to be met by: 08/25/16 Progress towards goal: Progressing Goal #3: Patient able to use RUE for all functional activities without pain. Goal to be met by: 08/25/16 Progress towards goal: Progressing Goal #4: Patient able to return to work without restrictions. Goal to be met by: 08/25/16 Progress towards goal: Not Met Plan PLAN OF CARE EXPIRES ON:: 08/25/16 ORDER # VISITS AND/OR THROUGH DATE: 08/25/2016 PLAN: Continue Plan of Care (Continue and progress AROM and strengthening.)
--- NOTE | 2016-07-29 15:33 | RS.OPPTDN ---
Subjective Date of Note: 07/29/16 Visit #: 20 Date of Evaluation: 06/14/16 (Sx. 11-09-16) Payer Source: Workman's Comp Treatment Diagnosis: Right RCR Current Subjective/complaints:: Patient reports exercise going well but he is concerned with tightness at end range. Pain Assessment - Pain Description Pain Location: Right shoulder Pain Description: nagging pain Current Pain Intensity: 0 at rest, discomfort at end range with stretching. - Heat/Cryotherapy Treatment: Hot Pack ([id number] to right shoulder prior to EX. Patient in sitting. ) Interventions - Exercise/Activities/Manual Therapy Exercises/Activities: 50mins total. Increased time on PROM of the right shoulder all directions, with patient in supine. Isometrics for contract/relax and stretching. Isometrics in all planes with UE at neutral and with shoulder at 90 degrees flexion and abduction. 5# wand for chest press and short range overhead flexion. Serratus punch with 5# dumbell, 3s/10reps. Red theraband for shoulder flexion, extension, forward press, IR and ER. In standing, AAROM flexion, scaption, and abduction. 1# wand for flexion and abduction to just above shoulder height, multiple reps. 1# dumbell for flexion, scaption, and abduction. In standing, multi-gym for scap retraction increased to 30#, 3s/ 10reps. Cable janina for chest press 5#, 3s/10reps. Ball on the wall, 1 1/2# cuff to each wrist, with large ball overhead side to side. Wall push-ups. Doorway chest stretch, 3 positions. Total minutes of Exercise: 50mins Manual Therapy: NA HOME EXERCISE PROGRAM: PROM and gentle isometrics only. Biceps/triceps strengthening with elbow at side. Isometric biceps, triceps, shoulder add and extension. Biceps curl with small weight. Cuff series, 1# weight. Red theraband shoulder x4 direct. Blue theraband scap retract. Red theraband for overhead flexion and extension. Resistive shoulder ROM with light weights. - Objective Findings Observations,measurements,etc.: Active right shoulder flexion to 117 degrees and AA flexion to 127 degrees. - Charges Total Direct Minutes: 50mins Total Treatment Time: 65mins Procedures billed for this date of service:: HP, EX3 Assessment: Patient progressing with exercise and with active motion of the right shoulder. Ermias;l need to continue to work on passive stretching at home. Patient Education: Home Exercise Program Patient demonstrates compliance with HEP?: Yes Short Term Goals Goal #1: Right AAROM shoulder flexion 120 degrees. Goal to be met by: 07/01/16 (100%) Progress towards Goal:: Met Goal #2: Right AAROM shoulder abduction 100 degrees. Goal to be met by: 07/01/16 (100%) Progress towards Goal:: Met Goal #3: Right shoulder AA external rotation 45 degrees. Goal to be met by: 07/01/16 (100%) Progress towards Goal:: Met Goal #4: Patient independent in beginning HEP. Goal to be met by: 07/01/16 (100%) Progress towards Goal:: Met Alf Goals Goal #1: Patient independent with DC HEP. Goal to be met by: 08/25/16 Progress towards goal: Progressing Goal #2: Right shoulder AROM WFLs Goal to be met by: 08/25/16 Progress towards goal: Progressing Goal #3: Patient able to use RUE for all functional activities without pain. Goal to be met by: 08/25/16 Progress towards goal: Progressing Goal #4: Patient able to return to work without restrictions. Goal to be met by: 08/25/16 Progress towards goal: Not Met Plan PLAN OF CARE EXPIRES ON:: 08/25/16 ORDER # VISITS AND/OR THROUGH DATE: 08/25/2016 PLAN: Continue Plan of Care (Contineu and progress strength and ROM)
--- NOTE | 2016-08-01 11:31 | RS.OPPTDN ---
Subjective Date of Note: 08/01/16 Visit #: 21 Date of Evaluation: 06/14/16 (Sx. 11-09-16) Payer Source: Workman's Comp Treatment Diagnosis: Right RCR Current Subjective/complaints:: Patient reports joint stiffness is a concern. States he is increasing light and moderate activities at home. Pain Assessment - Pain Description Pain Location: Right shoulder Pain Description: nagging pain Current Pain Intensity: 0 at rest, discomfort at end range with stretching. - Heat/Cryotherapy Treatment: Hot Pack ([id number] to the right shoulder joint prior to Ex. patient in sitting. ) Interventions - Exercise/Activities/Manual Therapy Exercises/Activities: 45mins total. Pent most of time on PROM of the right shoulder all directions, with patient in supine. Isometrics for contract/relax and stretching. Isometrics in all planes with UE at neutral and with shoulder at 90 degrees flexion and abduction. In standing, AAROM flexion, scaption, and abduction. 1# wand for flexion and abduction to just above shoulder height, multiple reps. 1# dumbell for flexion and scaption, standing at wall. In standing, multi-gym for scap retraction 30#, increased to 4s/10reps. Cable janina for chest press 5#, 4s/10reps, and retraction 3s/10reps. Wall push-ups. Doorway chest stretch, 3 positions. Total minutes of Exercise: 45mins Manual Therapy: NA HOME EXERCISE PROGRAM: PROM and gentle isometrics only. Biceps/triceps strengthening with elbow at side. Isometric biceps, triceps, shoulder add and extension. Biceps curl with small weight. Cuff series, 1# weight. Red theraband shoulder x4 direct. Blue theraband scap retract. Red theraband for overhead flexion and extension. Resistive shoulder ROM with light weights. - Objective Findings Observations,measurements,etc.: During passive stretching right shoulder ER progresssed to 90 degrees passively. - Charges Total Direct Minutes: 45mins Total Treatment Time: 60mins Procedures billed for this date of service:: HP, EX3 Assessment: Focus on PROM/stretching today to increased flexibility. Patient Education: Home Exercise Program Patient demonstrates compliance with HEP?: Yes Short Term Goals Goal #1: Right AAROM shoulder flexion 120 degrees. Goal to be met by: 07/01/16 (100%) Progress towards Goal:: Met Goal #2: Right AAROM shoulder abduction 100 degrees. Goal to be met by: 07/01/16 (100%) Progress towards Goal:: Met Goal #3: Right shoulder AA external rotation 45 degrees. Goal to be met by: 07/01/16 (100%) Progress towards Goal:: Met Goal #4: Patient independent in beginning HEP. Goal to be met by: 07/01/16 (100%) Progress towards Goal:: Met Waterfront Director Goals Goal #1: Patient independent with DC HEP. Goal to be met by: 08/25/16 Progress towards goal: Progressing Goal #2: Right shoulder AROM WFLs Goal to be met by: 08/25/16 Progress towards goal: Progressing Goal #3: Patient able to use RUE for all functional activities without pain. Goal to be met by: 08/25/16 Progress towards goal: Progressing Goal #4: Patient able to return to work without restrictions. Goal to be met by: 08/25/16 Progress towards goal: Not Met Plan PLAN OF CARE EXPIRES ON:: 08/25/16 ORDER # VISITS AND/OR THROUGH DATE: 08/25/2016 PLAN: Continue Plan of Care
--- NOTE | 2016-08-03 11:23 | RS.OPPTDN ---
Subjective Date of Note: 08/03/16 Visit #: 22 Date of Evaluation: 06/14/16 (Sx. 11-09-16) Payer Source: Workman's Comp Treatment Diagnosis: Right RCR Current Subjective/complaints:: Patient reports joint stiffness is concerning him. Reports he is progresing well with strengthening below shoulder height. Pain Assessment - Pain Description Pain Location: Right shoulder Pain Description: nagging pain Current Pain Intensity: 0 at rest, discomfort at end range with stretching. - Heat/Cryotherapy Treatment: Hot Pack ([id number] to the right shoulder prior to EX. Patient in sitting. ) Interventions - Exercise/Activities/Manual Therapy Exercises/Activities: 55mins total. Continued to focus time on PROM of the right shoulder all directions, with patient in supine. Isometrics for contract/ relax and stretching. Isometrics in all planes with UE at neutral and with shoulder at 90 degrees flexion and abduction. 1# dumbell flexion and scaption. Red theraband for shoulder flex, ext, and ER. Ball toss/chest pass in supine. In sitting, AAROM flexion, scaption, and abduction. 1# wand for flexion and abduction to just above shoulder height, multiple reps. 1# dumbell for flexion and scaption. Red theraband for right scap retraction and chest press. In standing, multi-gym for scap retraction 30#, increased to 3s/10reps. Cable janina for chest press 5#, 4s/10reps, and retraction 3s/10reps. Yellow theraband for overhead forward flexion/baseball throw position. 1# dumbell for overhead chest press. Large ball on wall overhead. Doorway chest stretch, 3 positions. Total minutes of Exercise: 55mins Manual Therapy: NA HOME EXERCISE PROGRAM: PROM and gentle isometrics only. Biceps/triceps strengthening with elbow at side. Isometric biceps, triceps, shoulder add and extension. Biceps curl with small weight. Cuff series, 1# weight. Red theraband shoulder x4 direct. Blue theraband scap retract. Red theraband for overhead flexion and extension. Resistive shoulder ROM with light weights. - Charges Total Direct Minutes: 55mins Total Treatment Time: 70mins Procedures billed for this date of service:: HP, EX4 Assessment: Patient progressing with strengthening and we are increasing focus on end range stretch and AROM above shoulder height. Patient Education: Education of diagnosis, Body/Joint mechanics, Home Exercise Program Patient demonstrates compliance with HEP?: Yes Short Term Goals Goal #1: Right AAROM shoulder flexion 120 degrees. Goal to be met by: 07/01/16 (100%) Progress towards Goal:: Met Goal #2: Right AAROM shoulder abduction 100 degrees. Goal to be met by: 07/01/16 (100%) Progress towards Goal:: Met Goal #3: Right shoulder AA external rotation 45 degrees. Goal to be met by: 07/01/16 (100%) Progress towards Goal:: Met Goal #4: Patient independent in beginning HEP. Goal to be met by: 07/01/16 (100%) Progress towards Goal:: Met Correction Goals Goal #1: Patient independent with DC HEP. Goal to be met by: 08/25/16 Progress towards goal: Progressing Goal #2: Right shoulder AROM WFLs Goal to be met by: 08/25/16 Progress towards goal: Progressing Goal #3: Patient able to use RUE for all functional activities without pain. Goal to be met by: 08/25/16 Progress towards goal: Progressing Goal #4: Patient able to return to work without restrictions. Goal to be met by: 08/25/16 Progress towards goal: Not Met Plan PLAN OF CARE EXPIRES ON:: 08/25/16 ORDER # VISITS AND/OR THROUGH DATE: 08/25/2016 PLAN: Continue Plan of Care
--- NOTE | 2016-08-05 12:56 | RS.OPPTDN ---
Subjective Date of Note: 08/05/16 Visit #: 23 Date of Evaluation: 06/14/16 (Sx. 11-09-16) Payer Source: Workman's Comp Treatment Diagnosis: Right RCR Current Subjective/complaints:: Patient reports continued stiffness right shoulder joint that is limiting active motion. Pain Assessment - Pain Description Pain Location: Right shoulder Pain Description: nagging pain Current Pain Intensity: 0 at rest, discomfort at end range with stretching. - Heat/Cryotherapy Treatment: Hot Pack ([id number] to the right shoulde prior to EX. Patient in sitting. ) Interventions - Exercise/Activities/Manual Therapy Exercises/Activities: 57mins total. Continued to focus time on PROM of the right shoulder all directions, with patient in supine. Isometrics for contract/ relax and stretching. Isometrics in all planes with UE at neutral and with shoulder at 90 degrees flexion and abduction. 1# dumbell flexion and scaption. Red theraband for shoulder flex, ext, and ER. Increased to 5# wand for flexion and chest press. Addidtional stretching. In sitting, AAROM flexion, scaption, and abduction. 1# dumbell for flexion, scaption, abduction, and overhead press, 4s/5reps each. Red theraband for right scap retraction and chest press. In standing, multi-gym for scap retraction 30#, increased to 5s/10reps. Cable janina for chest press 5#, 4s/10reps, and retraction 3s/10reps. Self stretching on overhead bars. Large ball on wall overhead. Doorway chest stretch, 3 positions. Total minutes of Exercise: 57mins Manual Therapy: NA HOME EXERCISE PROGRAM: PROM and gentle isometrics only. Biceps/triceps strengthening with elbow at side. Isometric biceps, triceps, shoulder add and extension. Biceps curl with small weight. Cuff series, 1# weight. Red theraband shoulder x4 direct. Blue theraband scap retract. Red theraband for overhead flexion and extension. Resistive shoulder ROM with light weights. - Charges Total Direct Minutes: 57mins Total Treatment Time: 72mins Procedures billed for this date of service:: HP, EX4 Assessment: Patient progressing with active and resistive reaching. Patient Education: Home Exercise Program Patient demonstrates compliance with HEP?: Yes Short Term Goals Goal #1: Right AAROM shoulder flexion 120 degrees. Goal to be met by: 07/01/16 (100%) Progress towards Goal:: Met Goal #2: Right AAROM shoulder abduction 100 degrees. Goal to be met by: 07/01/16 (100%) Progress towards Goal:: Met Goal #3: Right shoulder AA external rotation 45 degrees. Goal to be met by: 07/01/16 (100%) Progress towards Goal:: Met Goal #4: Patient independent in beginning HEP. Goal to be met by: 07/01/16 (100%) Progress towards Goal:: Met Chcf Goals Goal #1: Patient independent with DC HEP. Goal to be met by: 08/25/16 Progress towards goal: Progressing Goal #2: Right shoulder AROM WFLs Goal to be met by: 08/25/16 Progress towards goal: Progressing Goal #3: Patient able to use RUE for all functional activities without pain. Goal to be met by: 08/25/16 Progress towards goal: Progressing Goal #4: Patient able to return to work without restrictions. Goal to be met by: 08/25/16 Progress towards goal: Not Met Plan PLAN OF CARE EXPIRES ON:: 08/25/16 ORDER # VISITS AND/OR THROUGH DATE: 08/25/2016 PLAN: Continue Plan of Care
--- NOTE | 2016-08-08 14:48 | RS.OPPTDN ---
Subjective Date of Note: 08/08/16 Visit #: 24 Date of Evaluation: 06/14/16 (Sx. 11-09-16) Payer Source: Workman's Comp Treatment Diagnosis: Right RCR Current Subjective/complaints:: Patient reports right shoulder is not as tight at end range today. States he is working on HEP including aggressive stretching. Reports he is trying to increase ADL's at home. States he will have to be able to perform heavy lifting when he returns to work. Pain Assessment - Pain Description Pain Location: Right shoulder Pain Description: nagging pain Current Pain Intensity: 0 at rest, discomfort at end range with stretching. - Heat/Cryotherapy Treatment: Hot Pack ([id number] to the right shoulder prior to EX. Patient in sitting. ) Interventions - Exercise/Activities/Manual Therapy Exercises/Activities: 58mins total. PROM of the right shoulder all directions, with patient in supine. Isometrics for contract/relax and stretching. Isometrics in all planes with UE at neutral and with shoulder at 90 degrees flexion and abduction. Increaesd to 2# dumbell flexion and scaption. Increased to green theraband for shoulder flex, ext, chest press, and ER. 5# wand for flexion and chest press. Additional stretching. In standing, AAROM and AROM into flexion, scaption, and abduction. 1# dumbell for flexion, scaption, abduction, and overhead press, 4s/5reps each. In standing, multi-gym for scap retraction 30#, increased to 5s/10reps. Cable janina for chest press 5#, 4s/ 10reps, and retraction 3s/10reps. Self stretching on overhead bars. Small ball on wall overhead with 2# to the right wrist. Doorway chest stretch, 3 positions. Total minutes of Exercise: 58mins Manual Therapy: NA HOME EXERCISE PROGRAM: PROM and gentle isometrics only. Biceps/triceps strengthening with elbow at side. Isometric biceps, triceps, shoulder add and extension. Biceps curl with small weight. Cuff series, 1# weight. Red theraband shoulder x4 direct. Blue theraband scap retract. Red theraband for overhead flexion and extension. Resistive shoulder ROM with light weights. - Charges Total Direct Minutes: 58mins Total Treatment Time: 73mins Procedures billed for this date of service:: HP, EX4 Assessment: Patient progressing well with strengthening. He will need to be able to progress lifting to return to work. Patient Education: Home Exercise Program Patient demonstrates compliance with HEP?: Yes Short Term Goals Goal #1: Right AAROM shoulder flexion 120 degrees. Goal to be met by: 07/01/16 (100%) Progress towards Goal:: Met Goal #2: Right AAROM shoulder abduction 100 degrees. Goal to be met by: 07/01/16 (100%) Progress towards Goal:: Met Goal #3: Right shoulder AA external rotation 45 degrees. Goal to be met by: 07/01/16 (100%) Progress towards Goal:: Met Goal #4: Patient independent in beginning HEP. Goal to be met by: 07/01/16 (100%) Progress towards Goal:: Met Primary Care Sales Representative Goals Goal #1: Patient independent with DC HEP. Goal to be met by: 08/25/16 Progress towards goal: Progressing Goal #2: Right shoulder AROM WFLs Goal to be met by: 08/25/16 Progress towards goal: Progressing Goal #3: Patient able to use RUE for all functional activities without pain. Goal to be met by: 08/25/16 Progress towards goal: Progressing Goal #4: Patient able to return to work without restrictions. Goal to be met by: 08/25/16 Progress towards goal: Not Met Plan PLAN OF CARE EXPIRES ON:: 08/25/16 ORDER # VISITS AND/OR THROUGH DATE: 08/25/2016 PLAN: Continue Plan of Care (Continue and progress exercise to increase functional strength and ROM.)
--- NOTE | 2016-08-10 14:42 | RS.OPPTDN ---
Subjective Date of Note: 08/10/16 Visit #: 25 Date of Evaluation: 06/14/16 (Sx. 11-09-16) Payer Source: Workman's Comp Treatment Diagnosis: Right RCR Current Subjective/complaints:: Patient reports he is trying to increase passive stretching at home. Following treatment today patient reports improvement in motion. Pain Assessment - Pain Description Pain Location: Right shoulder Pain Description: nagging pain Current Pain Intensity: 0 at rest, discomfort at end range with stretching. - Heat/Cryotherapy Treatment: Hot Pack ([id number] to the right shoulder prior to EX. Patient in sitting. ) Interventions - Exercise/Activities/Manual Therapy Exercises/Activities: 50mins total. PROM of the right shoulder all directions, with patient in supine. Isometrics for contract/relax and stretching. Isometrics in all planes with UE at neutral and with shoulder at 90 degrees flexion and abduction. Increased to blue theraband for shoulder flex, ext, chest press, and ER. Increased to 10# wand for flexion and chest press. Additional stretching. In standing at wall, 1# dumbell for flexion, and overhead press, 4s/5reps each. In standing, multi-gym for scap retraction 30#, increased to 4s/10reps. Cable janina for chest press 5#, 4s/10reps, and retraction 3s/10reps. Self stretching on overhead bars. Small ball on wall overhead with 2# to the right wrist. Doorway chest stretch, 3 positions. Total minutes of Exercise: 50mins Manual Therapy: NA HOME EXERCISE PROGRAM: PROM and gentle isometrics only. Biceps/triceps strengthening with elbow at side. Isometric biceps, triceps, shoulder add and extension. Biceps curl with small weight. Cuff series, 1# weight. Red theraband shoulder x4 direct. Blue theraband scap retract. Red theraband for overhead flexion and extension. Resistive shoulder ROM with light weights. - Objective Findings Observations,measurements,etc.: Passive right shoulder 170 degrees and ER to 83 degrees today. - Charges Total Direct Minutes: 50mins Total Treatment Time: 65mins Procedures billed for this date of service:: HP, EX3 Assessment: Patient continues to progress with stretching and demos slow but steady progress with ROM. Patient Education: Home Exercise Program Comments: Reveiwed aggressive stretching. Patient demonstrates compliance with HEP?: Yes Short Term Goals Goal #1: Right AAROM shoulder flexion 120 degrees. Goal to be met by: 07/01/16 (100%) Progress towards Goal:: Met Goal #2: Right AAROM shoulder abduction 100 degrees. Goal to be met by: 07/01/16 (100%) Progress towards Goal:: Met Goal #3: Right shoulder AA external rotation 45 degrees. Goal to be met by: 07/01/16 (100%) Progress towards Goal:: Met Goal #4: Patient independent in beginning HEP. Goal to be met by: 07/01/16 (100%) Progress towards Goal:: Met Water Supervisor Goals Goal #1: Patient independent with DC HEP. Goal to be met by: 08/25/16 Progress towards goal: Progressing Goal #2: Right shoulder AROM WFLs Goal to be met by: 08/25/16 Progress towards goal: Progressing Goal #3: Patient able to use RUE for all functional activities without pain. Goal to be met by: 08/25/16 Progress towards goal: Progressing Goal #4: Patient able to return to work without restrictions. Goal to be met by: 08/25/16 Progress towards goal: Not Met Plan PLAN OF CARE EXPIRES ON:: 08/25/16 ORDER # VISITS AND/OR THROUGH DATE: 08/25/2016 PLAN: Continue Plan of Care (continue progressing exercise to increase functional AROM and strength.)
--- NOTE | 2016-08-12 11:34 | RS.OPPTDN ---
Subjective Date of Note: 08/12/16 Visit #: 26 Date of Evaluation: 06/14/16 (Sx. 11-09-16) Payer Source: Workman's Comp Treatment Diagnosis: Right RCR Current Subjective/complaints:: Patient reports doing his HEP regularly,using theraband also. Pain Assessment - Pain Description Pain Location: Right shoulder Pain Description: nagging pain Current Pain Intensity: 0 at rest, discomfort at end range with stretching. - Heat/Cryotherapy Treatment: Hot Pack (20 mins. prior to exercises) Interventions - Exercise/Activities/Manual Therapy Exercises/Activities: 35 mins total. ,supine stretching all planes,AROM with 10 # on multi-gym for boxers punch motion ,08/03 ,followed by shoulder IR with 5#, HEP review.Abbreviated session due to Worker Comp. [facility] here at beginning of session. Total minutes of Exercise: 35 Manual Therapy: NA Total minutes of Manual Therapy: 0 HOME EXERCISE PROGRAM: PROM and gentle isometrics. Biceps/triceps strengthening with elbow at side. Isometric biceps, triceps, shoulder add and extension. Biceps curl with small weight. Cuff series, 1# weight. Red theraband shoulder x4 direct. Blue theraband scap retract. Red theraband for overhead flexion and extension. Resistive shoulder ROM with light weights. - Charges Total Direct Minutes: 35 Total Treatment Time: 55 Procedures billed for this date of service:: hp,ex 2 Assessment: Patient has functional R shoulder ROM present .He is able to achieve overhead flexion for only a very short duration ,as he fatigues easily.He tolerates all isometrics well today.We discussed for him to focus more on strengthening as he is now 15 1/2 weeks post-op,but with light resistance and more reps. Patient Education: Education of diagnosis, Body/Joint mechanics, Home Exercise Program, Home Safety, Activity Modification, Education of Plan of Care Patient demonstrates compliance with HEP?: Yes Short Term Goals Goal #1: Right AAROM shoulder flexion 120 degrees. Goal to be met by: 07/01/16 (100%) Progress towards Goal:: Met Goal #2: Right AAROM shoulder abduction 100 degrees. Goal to be met by: 07/01/16 (100%) Progress towards Goal:: Met Goal #3: Right shoulder AA external rotation 45 degrees. Goal to be met by: 07/01/16 (100%) Progress towards Goal:: Met Goal #4: Patient independent in beginning HEP. Goal to be met by: 07/01/16 (100%) Progress towards Goal:: Met Teacher Home Therapy Goals Goal #1: Patient independent with DC HEP. Goal to be met by: 08/25/16 Progress towards goal: Progressing Goal #2: Right shoulder AROM WFLs Goal to be met by: 08/25/16 Progress towards goal: Progressing Goal #3: Patient able to use RUE for all functional activities without pain. Goal to be met by: 08/25/16 Progress towards goal: Progressing Goal #4: Patient able to return to work without restrictions. Goal to be met by: 08/25/16 Progress towards goal: Not Met Plan PLAN OF CARE EXPIRES ON:: 08/25/16 ORDER # VISITS AND/OR THROUGH DATE: 08/25/2016 PLAN: Progress Exercises
--- NOTE | 2016-08-15 11:21 | RS.OPPTDN ---
Subjective Date of Note: 08/15/16 Visit #: 27 Date of Evaluation: 06/14/16 (Sx. 11-09-16) Payer Source: Workman's Comp Treatment Diagnosis: Right RCR Current Subjective/complaints:: Reports no increased discomfort after last PT session. Pain Assessment - Pain Description Pain Location: Right shoulder Pain Description: nagging pain Current Pain Intensity: 0 at rest - Heat/Cryotherapy Treatment: Hot Pack (20 mins. prior to eercises) Interventions - Exercise/Activities/Manual Therapy Exercises/Activities: 40 mins total. ,supine stretching all planes,AROM with 10 # on [employer] for boxers punch motion ,08/03 ,followed by shoulder IR with 5#, ER eccentrics only with 5#.Seated pulldowns on [employer]-gym,10# with R elbow in full extension.Passive flexion to 170,IR to 70,ER to 65 today(all in supine.) Total minutes of Exercise: 40 Manual Therapy: NA Total minutes of Manual Therapy: 0 HOME EXERCISE PROGRAM: PROM and gentle isometrics. Biceps/triceps strengthening with elbow at side. Isometric biceps, triceps, shoulder add and extension. Biceps curl with small weight. Cuff series, 1# weight. Red theraband shoulder x4 direct. Blue theraband scap retract. Red theraband for overhead flexion and extension. Resistive shoulder ROM with light weights. - Charges Total Direct Minutes: 40 Total Treatment Time: 60 Procedures billed for this date of service:: maverick,ex 3 Assessment: Patient progressing ,has functional PROM,increased strength for shoulder elevation,able to maintain flexion to 90 degrees today with fatigue only,no sharp pain. Patient Education: Education of diagnosis, Body/Joint mechanics, Home Exercise Program, Home Safety, Activity Modification, Education of Plan of Care Patient demonstrates compliance with HEP?: Yes Short Term Goals Goal #1: Right AAROM shoulder flexion 120 degrees. Goal to be met by: 07/01/16 (100%) Progress towards Goal:: Met Goal #2: Right AAROM shoulder abduction 100 degrees. Goal to be met by: 07/01/16 (100%) Progress towards Goal:: Met Goal #3: Right shoulder AA external rotation 45 degrees. Goal to be met by: 07/01/16 (100%) Progress towards Goal:: Met Goal #4: Patient independent in beginning HEP. Goal to be met by: 07/01/16 (100%) Progress towards Goal:: Met Usp Goals Goal #1: Patient independent with DC HEP. Goal to be met by: 08/25/16 Progress towards goal: Progressing Goal #2: Right shoulder AROM WFLs Goal to be met by: 08/25/16 Progress towards goal: Progressing Goal #3: Patient able to use RUE for all functional activities without pain. Goal to be met by: 08/25/16 Progress towards goal: Progressing Goal #4: Patient able to return to work without restrictions. Goal to be met by: 08/25/16 Progress towards goal: Not Met Plan PLAN OF CARE EXPIRES ON:: 08/25/16 ORDER # VISITS AND/OR THROUGH DATE: 08/25/2016 PLAN: Progress Exercises
== END 2016-08-16 ==
PROVIDERS: ATTEND Orthopaedic Surgery
DX: S46.011D Strain of muscle(s) and tendon(s) of the rotator cuff of right shoulder, subsequent encounter (principal)

== ENCOUNTER → 2016-09-16 | Outpatient (RCR) ==
--- NOTE | 2016-08-17 12:12 | RS.OPPTDN ---
Subjective Date of Note: 08/17/16 Visit #: 28 Date of Evaluation: 06/14/16 (Sx. 11-09-16) Payer Source: Workman's Comp Treatment Diagnosis: Right RCR Current Subjective/complaints:: Patient reports he feels he is progressing with strengthening but continues to have joint soreness and tightness in right shoulder. Pain Assessment - Pain Description Pain Location: Right shoulder Pain Description: nagging pain Current Pain Intensity: 0 at rest - Heat/Cryotherapy Treatment: Hot Pack ([id number] to the right shoulder prior to EX. Patient in sitting. ) Interventions - Exercise/Activities/Manual Therapy Exercises/Activities: 45mins. In supine PROM/stretching all planes. Isometrics all directions, multiple reps. Wand with 5 # for overhead flexion. Blue theraband for right shoulder resist flex, ext, horz add, horz abd, and forward press. Multi-gym for boxers punch motion 23 ,2/15 ,followed by shoulder IR with 5#,ER eccentrics only with 20#, 2s/10reps and 10# 2s/10reps. Retraction 30# 3s/ 10reps. Ball in wall with 2# cuff weight to right wrist. 1# cuff weight for flexion overhead standing at all. Doorway stretching. Total minutes of Exercise: 45mins Manual Therapy: NA HOME EXERCISE PROGRAM: PROM and gentle isometrics. Biceps/triceps strengthening with elbow at side. Isometric biceps, triceps, shoulder add and extension. Biceps curl with small weight. Cuff series, 1# weight. Red theraband shoulder x4 direct. Blue theraband scap retract. Red theraband for overhead flexion and extension. Resistive shoulder ROM with light weights. - Charges Total Direct Minutes: 45mins Total Treatment Time: 60mins Procedures billed for this date of service:: HP, EX3 Assessment: Patient progressing with strengthening. Patient Education: Body/Joint mechanics, Home Exercise Program Patient demonstrates compliance with HEP?: Yes Short Term Goals Goal #1: Right AAROM shoulder flexion 120 degrees. Goal to be met by: 07/01/16 (100%) Progress towards Goal:: Met Goal #2: Right AAROM shoulder abduction 100 degrees. Goal to be met by: 07/01/16 (100%) Progress towards Goal:: Met Goal #3: Right shoulder AA external rotation 45 degrees. Goal to be met by: 07/01/16 (100%) Progress towards Goal:: Met Goal #4: Patient independent in beginning HEP. Goal to be met by: 07/01/16 (100%) Progress towards Goal:: Met Ore Puncher Goals Goal #1: Patient independent with DC HEP. Goal to be met by: 08/25/16 Progress towards goal: Progressing Goal #2: Right shoulder AROM WFLs Goal to be met by: 08/25/16 Progress towards goal: Progressing Goal #3: Patient able to use RUE for all functional activities without pain. Goal to be met by: 08/25/16 Progress towards goal: Progressing Goal #4: Patient able to return to work without restrictions. Goal to be met by: 08/25/16 Progress towards goal: Not Met Plan PLAN OF CARE EXPIRES ON:: 08/25/16 ORDER # VISITS AND/OR THROUGH DATE: 08/25/2016 PLAN: Continue Plan of Care
--- NOTE | 2016-08-18 11:56 | RS.OPPTDN ---
Subjective Date of Note: 08/18/16 Visit #: 29 Date of Evaluation: 06/14/16 (Sx. 11-09-16) Payer Source: Workman's Comp Treatment Diagnosis: Right RCR Current Subjective/complaints:: Patient reports trying to increase light daily activities at home. He reports continued difficulty with active and resisted flexion and abduction above shoulder height. Pain Assessment - Pain Description Pain Location: Right shoulder Pain Description: nagging pain Current Pain Intensity: 0 at rest - Heat/Cryotherapy Treatment: Hot Pack ([id number] to the right shoulder prior to exercise. Patient in sitting. ) Interventions - Exercise/Activities/Manual Therapy Exercises/Activities: 45mins. In supine PROM/stretching all planes. Isometrics all directions, multiple reps. Wand with 5 # for overhead flexion. Blue theraband for right shoulder resist flex, ext, horz add, horz abd, and forward press. Multi-gym for boxers punch motion 10# , 2s/10reps. Retraction 30# 3s/ 10reps. 1# dumbell for flexion and abduction standing at all. Red theraband for overhead flexion, scaption, and forward flexion/baseball throw position, all 10reps. Red theraband for bilateral shoulder ER, 2s/10reps. Doorway stretching. Total minutes of Exercise: 45mins Manual Therapy: NA HOME EXERCISE PROGRAM: PROM and gentle isometrics. Biceps/triceps strengthening with elbow at side. Isometric biceps, triceps, shoulder add and extension. Biceps curl with small weight. Cuff series, 1# weight. Red theraband shoulder x4 direct. Blue theraband scap retract. Red theraband for overhead flexion and extension. Resistive shoulder ROM with light weights. - Charges Total Direct Minutes: 45mins Total Treatment Time: 60mins Procedures billed for this date of service:: HP, EX3h Assessment: Patient progressing with strengthening exercise and with some daily activities at home. Patient Education: Home Exercise Program Comments: Advised patient to increase resistive shoulder flexion and abduction in standing at wall, but continue with light weight around 1#. Patient demonstrates compliance with HEP?: Yes Short Term Goals Goal #1: Right AAROM shoulder flexion 120 degrees. Goal to be met by: 07/01/16 (100%) Progress towards Goal:: Met Goal #2: Right AAROM shoulder abduction 100 degrees. Goal to be met by: 07/01/16 (100%) Progress towards Goal:: Met Goal #3: Right shoulder AA external rotation 45 degrees. Goal to be met by: 07/01/16 (100%) Progress towards Goal:: Met Goal #4: Patient independent in beginning HEP. Goal to be met by: 07/01/16 (100%) Progress towards Goal:: Met Helix Coil Winder Goals Goal #1: Patient independent with DC HEP. Goal to be met by: 08/25/16 (80%) Progress towards goal: Progressing Goal #2: Right shoulder AROM WFLs Goal to be met by: 08/25/16 (80%) Progress towards goal: Progressing Goal #3: Patient able to use RUE for all functional activities without pain. Goal to be met by: 08/25/16 (50%) Progress towards goal: Progressing Goal #4: Patient able to return to work without restrictions. Goal to be met by: 08/25/16 Progress towards goal: Not Met Plan PLAN OF CARE EXPIRES ON:: 08/25/16 ORDER # VISITS AND/OR THROUGH DATE: 08/25/2016 PLAN: Continue Plan of Care (Continue next week, progressing strengthening and AROM of the right shoulder. Patient will return for a follow-up with physician next week.)
--- NOTE | 2016-08-22 15:41 | RS.OPPTDN ---
Subjective Date of Note: 08/22/16 Visit #: 30 Date of Evaluation: 06/14/16 (Sx. 11-09-16) Payer Source: Workman's Comp Treatment Diagnosis: Right RCR Pain Assessment - Pain Description Pain Location: Right shoulder Pain Description: nagging pain Current Pain Intensity: 0 at rest - Heat/Cryotherapy Treatment: Hot Pack ([id number] to the right shoulder prior to EX. Patient in sitting. ) Interventions - Exercise/Activities/Manual Therapy Exercises/Activities: 45mins. In supine PROM/stretching all planes. Isometrics all directions, multiple reps. Wand increased to 6# for overhead flexion. Blue theraband for right shoulder resist flex, ext, horz add, horz abd, and forward press. Bilateral shoulder ER. 2# ball with shoulder at 90 degrees for proprioception. PNF pattern right shoulder with 2# ball. Multi-gym for boxers punch motion 10#, 2s/10reps. Retraction 30# 3s/10reps. 1# dumbell for flexion and abduction standing at all. Red theraband for overhead flexion, scaption, and forward flexion/baseball throw position, all 10reps. Red theraband for bilateral shoulder ER, 2s/10reps. Ball on wall with 2# cuff weight. Doorway stretching. Total minutes of Exercise: 45mins Manual Therapy: NA HOME EXERCISE PROGRAM: PROM and isometrics. Biceps/triceps strengthening with elbow at side. Isometric biceps, triceps, shoulder add and extension. Biceps curl with small weight. Cuff series. Red and green theraband shoulder x4 direct. Blue theraband scap retract. Red theraband for overhead flexion and extension. Resistive shoulder ROM with light weights. Ball on wall. - Objective Findings Observations,measurements,etc.: Passive right shoulder flexion to 170 and ER to 90 following aggressive stretching. Active right shoulder flexion to 127 degrees and AA flexion to 157 degrees. - Charges Total Direct Minutes: 45mins Total Treatment Time: 60mins Procedures billed for this date of service:: HP, EX3 Assessment: Patient progressing with AROM and strengthening. He will need to continue strengthening, including overhead, to prepare for work duties. Patient Education: Home Exercise Program Patient demonstrates compliance with HEP?: Yes Short Term Goals Goal #1: Right AAROM shoulder flexion 120 degrees. Goal to be met by: 07/01/16 (100%) Progress towards Goal:: Met Goal #2: Right AAROM shoulder abduction 100 degrees. Goal to be met by: 07/01/16 (100%) Progress towards Goal:: Met Goal #3: Right shoulder AA external rotation 45 degrees. Goal to be met by: 07/01/16 (100%) Progress towards Goal:: Met Goal #4: Patient independent in beginning HEP. Goal to be met by: 07/01/16 (100%) Progress towards Goal:: Met Web Offset Press Feeder Goals Goal #1: Patient independent with DC HEP. Goal to be met by: 08/25/16 (80%) Progress towards goal: Progressing Goal #2: Right shoulder AROM WFLs Goal to be met by: 08/25/16 (80%) Progress towards goal: Progressing Goal #3: Patient able to use RUE for all functional activities without pain. Goal to be met by: 08/25/16 (50%) Progress towards goal: Progressing Goal #4: Patient able to return to work without restrictions. Goal to be met by: 08/25/16 Progress towards goal: Not Met Plan PLAN OF CARE EXPIRES ON:: 08/25/16 ORDER # VISITS AND/OR THROUGH DATE: 08/25/2016 PLAN: Continue Plan of Care (Patient to have a follow-up appointment with physician and continuation orders are anticipated as patient will need to be stronger to return to full work duties.)
--- NOTE | 2016-08-24 16:19 | RS.OPPTDN ---
Subjective Date of Note: 08/24/16 Visit #: 31 Date of Evaluation: 06/14/16 (Sx. 11-09-16) Payer Source: Workman's Comp Treatment Diagnosis: Right RCR Current Subjective/complaints:: Patient reports seeing physician and getting orders to continue and progress strengthening. Pain Assessment - Pain Description Pain Location: Right shoulder Pain Description: nagging pain Current Pain Intensity: 0 at rest - Heat/Cryotherapy Treatment: Hot Pack ([id number] to the right shoulder prior to EX. Patient sitting. ) Interventions - Exercise/Activities/Manual Therapy Exercises/Activities: 45mins. In supine PROM/stretching all planes. Isometrics all directions, multiple reps. Wand increased to 6# for overhead flexion. Blue theraband for right shoulder resist flex, ext, horz add, horz abd, and forward press. Bilateral shoulder ER. 2# dumbell for ROM in supine. Multi-gym for boxers punch motion 10#, 2s/10reps. Retraction 30# 3s/10reps. 1# dumbell for flexion and abduction standing at all. Red theraband for overhead flexion, scaption, and forward flexion/baseball throw position, all 10reps. Red theraband for bilateral shoulder ER, 2s/10reps. Ball on wall with 2# cuff weight. Shelf reaching overhead with 4#. Bodyblade 2mins. Doorway stretching. Total minutes of Exercise: 45mins Manual Therapy: NA HOME EXERCISE PROGRAM: PROM and isometrics. Biceps/triceps strengthening with elbow at side. Isometric biceps, triceps, shoulder add and extension. Biceps curl with small weight. Cuff series. Red and green theraband shoulder x4 direct. Blue theraband scap retract. Red theraband for overhead flexion and extension. Resistive shoulder ROM with light weights. Ball on wall. - Charges Total Direct Minutes: 45mins Total Treatment Time: 45mins Procedures billed for this date of service:: EX3 Assessment: Patient progressing overhead strengthening activity. Patient Education: Home Exercise Program Patient demonstrates compliance with HEP?: Yes Short Term Goals Goal #1: Right AAROM shoulder flexion 120 degrees. Goal to be met by: 07/01/16 (100%) Progress towards Goal:: Met Goal #2: Right AAROM shoulder abduction 100 degrees. Goal to be met by: 07/01/16 (100%) Progress towards Goal:: Met Goal #3: Right shoulder AA external rotation 45 degrees. Goal to be met by: 07/01/16 (100%) Progress towards Goal:: Met Goal #4: Patient independent in beginning HEP. Goal to be met by: 07/01/16 (100%) Progress towards Goal:: Met Shelter Goals Goal #1: Patient independent with DC HEP. Goal to be met by: 10/14/16 (80%) Progress towards goal: Progressing Goal #2: Right shoulder AROM WFLs Goal to be met by: 10/14/16 (80%) Progress towards goal: Progressing Goal #3: Patient able to use RUE for all functional activities without pain. Goal to be met by: 10/14/16 (50%) Progress towards goal: Progressing Goal #4: Patient able to return to work without restrictions. Goal to be met by: 10/14/16 Progress towards goal: Not Met Plan PLAN OF CARE EXPIRES ON:: 10/14/16 ORDER # VISITS AND/OR THROUGH DATE: 10/14/2016 Extended with new orders PLAN: Continue Plan of Care
--- NOTE | 2016-08-26 15:05 | RS.OPPTDN ---
Subjective Date of Note: 08/26/16 Visit #: 32 Date of Evaluation: 06/14/16 (Sx. 11-09-16) Payer Source: Workman's Comp Treatment Diagnosis: Right RCR Current Subjective/complaints:: Patient reports progress with HEP. Continues to have difficulty with overhead active reaching. Pain Assessment - Pain Description Pain Location: Right shoulder Pain Description: nagging pain Current Pain Intensity: 0 at rest - Heat/Cryotherapy Treatment: Hot Pack ([id number] to the right shoulder prior to EX. Patient in sitting. ) Interventions - Exercise/Activities/Manual Therapy Exercises/Activities: 45mins. In supine PROM/stretching all planes. Isometrics all directions, multiple reps. 6# wand for overhead flexion. Blue theraband for right shoulder resist flex, ext, horz add, horz abd, and forward press. Blue band for UE diagonals 2 directions. 2# dumbell for ROM in supine and PNF patterns 1 and 2. Multi-gym for boxers punch motion 10#, 2s/10reps. Retraction 30# 3s/10reps. 1# dumbell for flexion and abduction standing at all. Red theraband for overhead flexion, scaption, and forward flexion/baseball throw position, all 10reps. Red theraband for bilateral shoulder ER, 2s/10reps. Large ball on wall with 2# cuff weight to right wrist. Shelf reaching overhead with 4# . Doorway stretching. Total minutes of Exercise: 45mins Manual Therapy: NA HOME EXERCISE PROGRAM: PROM and isometrics. Biceps/triceps strengthening with elbow at side. Isometric biceps, triceps, shoulder add and extension. Biceps curl with small weight. Cuff series. Red and green theraband shoulder x4 direct. Blue theraband scap retract. Red theraband for overhead flexion and extension. Resistive shoulder ROM with light weights. Ball on wall. - Charges Total Direct Minutes: 45mins Total Treatment Time: 60mins Procedures billed for this date of service:: HP, EX3 Assessment: Patient contsistently working on HEP and progressing with active reaching. Patient Education: Home Exercise Program Patient demonstrates compliance with HEP?: Yes Short Term Goals Goal #1: Right AAROM shoulder flexion 120 degrees. Goal to be met by: 07/01/16 (100%) Progress towards Goal:: Met Goal #2: Right AAROM shoulder abduction 100 degrees. Goal to be met by: 07/01/16 (100%) Progress towards Goal:: Met Goal #3: Right shoulder AA external rotation 45 degrees. Goal to be met by: 07/01/16 (100%) Progress towards Goal:: Met Goal #4: Patient independent in beginning HEP. Goal to be met by: 07/01/16 (100%) Progress towards Goal:: Met [facility] Goals Goal #1: Patient independent with DC HEP. Goal to be met by: 10/14/16 (80%) Progress towards goal: Progressing Goal #2: Right shoulder AROM WFLs Goal to be met by: 10/14/16 (80%) Progress towards goal: Progressing Goal #3: Patient able to use RUE for all functional activities without pain. Goal to be met by: 10/14/16 (50%) Progress towards goal: Progressing Goal #4: Patient able to return to work without restrictions. Goal to be met by: 10/14/16 Progress towards goal: Not Met Plan PLAN OF CARE EXPIRES ON:: 10/14/16 ORDER # VISITS AND/OR THROUGH DATE: 10/14/2016 Extended with new orders PLAN: Continue Plan of Care
--- NOTE | 2016-08-29 14:18 | RS.OPPTDN ---
Subjective Date of Note: 08/29/16 Visit #: 33 Date of Evaluation: 06/14/16 (Sx. 11-09-16) Payer Source: Workman's Comp Treatment Diagnosis: Right RCR Current Subjective/complaints:: Patient reports improvement with active right shoulder flexion with HEP this weekend. States he is going out of town to see his wifes family. States they had trip planned prior to his surgery. Patient agrees to continue HEP as instructed while he is away. Pain Assessment - Pain Description Pain Location: Right shoulder Pain Description: nagging pain Current Pain Intensity: 0 at rest - Heat/Cryotherapy Treatment: Hot Pack ([id number] to the right shoulder prior to EX. Patient in sitting. ) Interventions - Exercise/Activities/Manual Therapy Exercises/Activities: 45mins. In supine PROM/stretching all planes. Isometrics all directions, multiple reps. 6# wand for overhead flexion. Blue theraband for right shoulder resist flex, ext, horz add, horz abd, and forward press. 2# dumbell for ROM in supine for flex, scap, and horizontal abd. Multi-gym for boxers punch motion 10#, 2s/10reps. Retraction 30# 3s/10reps. 1# dumbell for flexion and abduction standing at all. Red theraband for overhead flexion, scaption, and forward flexion/baseball throw position, all 10reps. Large ball on wall increased to 3# cuff weight to right wrist. 4# wand for overhead flexion and then reduced to 1#, both multiple reps. Doorway stretching. Total minutes of Exercise: 45mins Manual Therapy: NA HOME EXERCISE PROGRAM: PROM and isometrics. Biceps/triceps strengthening with elbow at side. Isometric biceps, triceps, shoulder add and extension. Biceps curl with small weight. Cuff series. Red and green theraband shoulder x4 direct. Blue theraband scap retract. Red theraband for overhead flexion and extension. Resistive shoulder ROM with light weights. Ball on wall. - Charges Total Direct Minutes: 45mins Total Treatment Time: 60mins Procedures billed for this date of service:: HP, EX3 Assessment: Patient progressing and will continue HEP while out of town to see family. Patient Education: Home Exercise Program Patient demonstrates compliance with HEP?: Yes Short Term Goals Goal #1: Right AAROM shoulder flexion 120 degrees. Goal to be met by: 07/01/16 (100%) Progress towards Goal:: Met Goal #2: Right AAROM shoulder abduction 100 degrees. Goal to be met by: 07/01/16 (100%) Progress towards Goal:: Met Goal #3: Right shoulder AA external rotation 45 degrees. Goal to be met by: 07/01/16 (100%) Progress towards Goal:: Met Goal #4: Patient independent in beginning HEP. Goal to be met by: 07/01/16 (100%) Progress towards Goal:: Met Senior Qa Analyst Goals Goal #1: Patient independent with DC HEP. Goal to be met by: 10/14/16 (80%) Progress towards goal: Progressing Goal #2: Right shoulder AROM WFLs Goal to be met by: 10/14/16 (80%) Progress towards goal: Progressing Goal #3: Patient able to use RUE for all functional activities without pain. Goal to be met by: 10/14/16 (50%) Progress towards goal: Progressing Goal #4: Patient able to return to work without restrictions. Goal to be met by: 10/14/16 Progress towards goal: Not Met Plan PLAN OF CARE EXPIRES ON:: 10/14/16 ORDER # VISITS AND/OR THROUGH DATE: 10/14/2016 Extended with new orders PLAN: Continue Plan of Care
--- NOTE | 2016-09-12 13:49 | RS.OPPTDN ---
Subjective Date of Note: 09/12/16 Visit #: 34 Date of Evaluation: 06/14/16 (Sx. 11-09-16) Payer Source: Workman's Comp Treatment Diagnosis: Right RCR Current Subjective/complaints:: Patient reports he continues HEP and is slowly increasing daily activities around his home as advised by physician. States he was told to increase all activities but to avoid heavy lifting. States he plans to try mowing his yard in a week or so. Pain Assessment - Pain Description Pain Location: Right shoulder Pain Description: nagging pain Current Pain Intensity: 0 at rest Interventions - Exercise/Activities/Manual Therapy Exercises/Activities: 55mins. In supine PROM/stretching all planes. Isometrics all directions, multiple reps. 6# wand for overhead flexion. Blue theraband for right shoulder resist flex, ext, horz add, horz abd, and forward press. 2# dumbell for ROM in supine for flex, scap, and horizontal abd. Multi-gym for boxers punch motion 10#, 3s/10reps. Retraction 30# 3s/10reps. 2# ball for flexion and scaption standing at all. Red theraband for overhead flexion, scaption, and forward flexion/baseball throw position, all 10reps. 3# cuff weight to right wrist while performing shot-putt throw of 2# ball. 5# wand for overhead flexion at wall, multiple reps. Shelf reaching above shoulder height with 5# weight. Doorway stretching. Total minutes of Exercise: 55mins Manual Therapy: NA HOME EXERCISE PROGRAM: PROM and isometrics. Biceps/triceps strengthening with elbow at side. Isometric biceps, triceps, shoulder add and extension. Biceps curl with small weight. Cuff series. Red and green theraband shoulder x4 direct. Blue theraband scap retract. Red theraband for overhead flexion and extension. Resistive shoulder ROM with light weights. Ball on wall. - Objective Findings Observations,measurements,etc.: Increase in passive ER to full with aggressive stretch in supine. - Charges Total Direct Minutes: 55mins Total Treatment Time: 55mins Procedures billed for this date of service:: EX4 Assessment: Patient continues to progress ROM, strengthening, and functional use of the right UE. He will need to increase strength with overhead reaching and lifting heavy objects due to he work duty requirements. Patient Education: Home Exercise Program Patient demonstrates compliance with HEP?: Yes Short Term Goals Goal #1: Right AAROM shoulder flexion 120 degrees. Goal to be met by: 07/01/16 (100%) Progress towards Goal:: Met Goal #2: Right AAROM shoulder abduction 100 degrees. Goal to be met by: 07/01/16 (100%) Progress towards Goal:: Met Goal #3: Right shoulder AA external rotation 45 degrees. Goal to be met by: 07/01/16 (100%) Progress towards Goal:: Met Goal #4: Patient independent in beginning HEP. Goal to be met by: 07/01/16 (100%) Progress towards Goal:: Met [facility] Goals Goal #1: Patient independent with DC HEP. Goal to be met by: 10/14/16 (80%) Progress towards goal: Progressing Goal #2: Right shoulder AROM WFLs Goal to be met by: 10/14/16 (80%) Progress towards goal: Progressing Goal #3: Patient able to use RUE for all functional activities without pain. Goal to be met by: 10/14/16 (55%) Progress towards goal: Progressing Goal #4: Patient able to return to work without restrictions. Goal to be met by: 10/14/16 Progress towards goal: Not Met Plan PLAN OF CARE EXPIRES ON:: 10/14/16 ORDER # VISITS AND/OR THROUGH DATE: 10/14/2016 Extended with new orders PLAN: Continue Plan of Care (Progress ROM and strengthening, including overhead reaching and lifting.)
--- NOTE | 2016-09-14 11:56 | RS.OPPTDN ---
Subjective Date of Note: 09/14/16 Visit #: 35 Date of Evaluation: 06/14/16 (Sx. 11-09-16) Payer Source: Workman's Comp Treatment Diagnosis: Right RCR Current Subjective/complaints:: Patient reports he is doing more around his house including some limited yardwork, as advised by his physician. Reports he is continues to be concerned with limited motion at end range and weakness with overhead lifting. Pain Assessment - Pain Description Pain Location: Right shoulder Pain Description: nagging pain Current Pain Intensity: 0 at rest Interventions - Exercise/Activities/Manual Therapy Exercises/Activities: 55mins. In supine PROM/stretching all planes. Isometrics all directions, multiple reps. 6# wand for overhead flexion. Blue theraband for right shoulder resist flex, ext, horz add, horz abd, and forward press. 2# ball for propriocetion exercise with right shoulder at 90 degrees flexion. 2# dumbell for ROM in supine for flex, scap, and horizontal abd. Blue theraband for UE diagonals. Multi-gym for boxers punch motion 10#, 3s/10reps. Retraction with long bar, 20# 3s/10reps. 2# ball for flexion and scaption standing at all. Red theraband for bilateral shoulder scaption, 3s/10reps. 5# wand for overhead flexion at wall, multiple reps. Shelf reaching above shoulder height with 5# weight. Doorway stretching. Total minutes of Exercise: 55mins Manual Therapy: NA HOME EXERCISE PROGRAM: PROM and isometrics. Biceps/triceps strengthening with elbow at side. Isometric biceps, triceps, shoulder add and extension. Biceps curl with small weight. Cuff series. Red and green theraband shoulder x4 direct. Blue theraband scap retract. Red theraband for overhead flexion and extension. Resistive shoulder ROM with light weights. Ball on wall. - Charges Total Direct Minutes: 55mins Total Treatment Time: 55mins Procedures billed for this date of service:: EX4 Assessment: Patient continues to progress with strengthening exercise, overhead work, and daily activities at home. Will need to progress strengthening to return to full work duty. Patient Education: Body/Joint mechanics, Home Exercise Program, Home Safety, Activity Modification Patient demonstrates compliance with HEP?: Yes Short Term Goals Goal #1: Right AAROM shoulder flexion 120 degrees. Goal to be met by: 07/01/16 (100%) Progress towards Goal:: Met Goal #2: Right AAROM shoulder abduction 100 degrees. Goal to be met by: 07/01/16 (100%) Progress towards Goal:: Met Goal #3: Right shoulder AA external rotation 45 degrees. Goal to be met by: 07/01/16 (100%) Progress towards Goal:: Met Goal #4: Patient independent in beginning HEP. Goal to be met by: 07/01/16 (100%) Progress towards Goal:: Met Timber Deadener Goals Goal #1: Patient independent with DC HEP. Goal to be met by: 10/14/16 (80%) Progress towards goal: Progressing Goal #2: Right shoulder AROM WFLs Goal to be met by: 10/14/16 (80%) Progress towards goal: Progressing Goal #3: Patient able to use RUE for all functional activities without pain. Goal to be met by: 10/14/16 (60%) Progress towards goal: Progressing Comments: Performing light to mod activities at home without increasing pain. Goal #4: Patient able to return to work without restrictions. Goal to be met by: 10/14/16 Progress towards goal: Not Met Plan PLAN OF CARE EXPIRES ON:: 10/14/16 ORDER # VISITS AND/OR THROUGH DATE: 10/14/2016 Extended with new orders PLAN: Continue Plan of Care (Progress with strengthening exercise, with focus on overhead activities.)
--- NOTE | 2016-09-16 14:02 | RS.OPPTDN ---
Subjective Date of Note: 09/16/16 Visit #: 36 Date of Evaluation: 06/14/16 (Sx. 11-09-16) Payer Source: Workman's Comp Treatment Diagnosis: Right RCR Current Subjective/complaints:: Patient reports progressing with strengthening exercise, but continued difficulty with passive stretching at end range. Pain Assessment - Pain Description Pain Location: Right shoulder Pain Description: nagging pain Current Pain Intensity: 0 at rest Interventions - Exercise/Activities/Manual Therapy Exercises/Activities: 55mins. In supine PROM/stretching all planes. Isometrics all directions, multiple reps. 6# wand for overhead flexion. Blue theraband for right shoulder resist flex, ext, horz add, horz abd, and forward press. 2# ball for propriocetion exercise with right shoulder at 90 degrees flexion. 2# dumbell for ROM in supine for flex, scap, and horizontal abd. Blue theraband for UE diagonals. Multi-gym for boxers punch motion 10#, 3s/10reps. Retraction 40# 3s/10reps. 2# cuff weight to right wrist with 2# ball for "shot-putt" throw. BLue tubing for overhead "baseball throw". 5# wand for overhead flexion at wall, multiple reps. Shelf reaching above shoulder height with 10# both UE's and 5# right UE. Ball on wall with 2# cuff seight to right wrist. Doorway stretching. Total minutes of Exercise: 55mins Manual Therapy: NA HOME EXERCISE PROGRAM: PROM and isometrics. Biceps/triceps strengthening with elbow at side. Isometric biceps, triceps, shoulder add and extension. Biceps curl with small weight. Cuff series. Red and green theraband shoulder x4 direct. Blue theraband scap retract. Red theraband for overhead flexion and extension. Resistive shoulder ROM with light weights. Ball on wall. - Charges Total Direct Minutes: 55mins Total Treatment Time: 60mins Procedures billed for this date of service:: EX4 Assessment: Patient continues to progress with strengthening including overhead work. Patient Education: Home Exercise Program Patient demonstrates compliance with HEP?: Yes Short Term Goals Goal #1: Right AAROM shoulder flexion 120 degrees. Goal to be met by: 07/01/16 (100%) Progress towards Goal:: Met Goal #2: Right AAROM shoulder abduction 100 degrees. Goal to be met by: 07/01/16 (100%) Progress towards Goal:: Met Goal #3: Right shoulder AA external rotation 45 degrees. Goal to be met by: 07/01/16 (100%) Progress towards Goal:: Met Goal #4: Patient independent in beginning HEP. Goal to be met by: 07/01/16 (100%) Progress towards Goal:: Met [facility] Goals Goal #1: Patient independent with DC HEP. Goal to be met by: 10/14/16 (80%) Progress towards goal: Progressing Goal #2: Right shoulder AROM WFLs Goal to be met by: 10/14/16 (80%) Progress towards goal: Progressing Goal #3: Patient able to use RUE for all functional activities without pain. Goal to be met by: 10/14/16 (60%) Progress towards goal: Progressing Goal #4: Patient able to return to work without restrictions. Goal to be met by: 10/14/16 Progress towards goal: Not Met Plan PLAN OF CARE EXPIRES ON:: 10/14/16 ORDER # VISITS AND/OR THROUGH DATE: 10/14/2016 Extended with new orders PLAN: Continue Plan of Care (Continue strengthening working toward PLOF.)
== END ==
PROVIDERS: ATTEND Orthopaedic Surgery
DX: M25.511 Pain in right shoulder (principal)

== ENCOUNTER 2016-10-13 10:00 | Outpatient (RCR) ==
--- NOTE | 2016-09-19 12:16 | RS.OPPTDN ---
Subjective Date of Note: 09/19/16 Visit #: 37 Date of Evaluation: 06/14/16 (Sx. 11-09-16) Payer Source: Workman's Comp Treatment Diagnosis: Right RCR Current Subjective/complaints:: Patient states he just has "one spot" that bothers him. Reports when he lifts his arm to the side or rotates (abd and ER) the shoulder, he feels tightness. Denies taking pain meds except for occasional ALEVE. He reports he is able to push mow and use his zero turn mower for his yard. He reports PT has helped significantly with mobility and strengthening. Joseph says he will return to his ortho 10/04/16. Pain Assessment - Pain Description Pain Location: Right shoulder Pain Description: nagging pain Current Pain Intensity: 0 at rest Interventions - Exercise/Activities/Manual Therapy Exercises/Activities: 55mins. In supine PROM/stretching all planes. Isometrics all directions, multiple reps. Increased to 8# wand due to patient request for overhead flexion. Blue theraband for right shoulder resist flex, ext, horz add, horz abd, and forward press. 2# ball for propriocetion exercise with right shoulder at 90 degrees flexion. Increased to 3# dumbell for ROM in supine for flex, scap, and horizontal abd. Blue theraband for UE diagonals. Multi-gym for boxers punch motion 10#, 3s/10reps. Retraction 40# 3s/10reps. 2# cuff weight to right wrist with 2# ball for "shot-putt" throw. Shelf reaching above shoulder height with 10# both UE's and 5# right UE. Ball on wall with 2# cuff weight to right wrist. Doorway stretching. Manual Therapy: NA HOME EXERCISE PROGRAM: PROM and isometrics. Biceps/triceps strengthening with elbow at side. Isometric biceps, triceps, shoulder add and extension. Biceps curl with small weight. Cuff series. Red and green theraband shoulder x4 direct. Blue theraband scap retract. Red theraband for overhead flexion and extension. Resistive shoulder ROM with light weights. Ball on wall. - Charges Total Direct Minutes: 55 Total Treatment Time: 55 Procedures billed for this date of service:: ex4 Assessment: Patient able to progress weight on supine wand and dumbell exercises for the R UE without difficulty. He demonstrates PROM all within ~10 degrees of norm today with nearly full AROM as well with mild tightness at end ranges. Pain remains little to none requiring only intermittent ALEVE. He has returned to yard keeping, mowing without c/o's. Patient Education: Education of diagnosis, Body/Joint mechanics, Home Exercise Program, Home Safety, Activity Modification, Education of Plan of Care Patient demonstrates compliance with HEP?: Yes Short Term Goals Goal #1: Right AAROM shoulder flexion 120 degrees. Goal to be met by: 07/01/16 (100%) Progress towards Goal:: Met Goal #2: Right AAROM shoulder abduction 100 degrees. Goal to be met by: 07/01/16 (100%) Progress towards Goal:: Met Goal #3: Right shoulder AA external rotation 45 degrees. Goal to be met by: 07/01/16 (100%) Progress towards Goal:: Met Goal #4: Patient independent in beginning HEP. Goal to be met by: 07/01/16 (100%) Progress towards Goal:: Met Yard Hand Goals Goal #1: Patient independent with DC HEP. Goal to be met by: 10/14/16 (80%) Progress towards goal: Progressing Goal #2: Right shoulder AROM WFLs Goal to be met by: 10/14/16 Progress towards goal: Met Goal #3: Patient able to use RUE for all functional activities without pain. Goal to be met by: 10/14/16 (60%) Progress towards goal: Progressing Goal #4: Patient able to return to work without restrictions. Goal to be met by: 10/14/16 Progress towards goal: Not Met Plan PLAN OF CARE EXPIRES ON:: 10/14/16 ORDER # VISITS AND/OR THROUGH DATE: 10/14/2016 Extended with new orders PLAN: Progress Exercises (Patient returns to MD 10/04/16)
--- NOTE | 2016-09-21 15:24 | RS.OPPTDN ---
Subjective Date of Note: 09/21/16 Visit #: 38 Date of Evaluation: 06/14/16 (Sx. 11-09-16) Payer Source: Workman's Comp Treatment Diagnosis: Right RCR Current Subjective/complaints:: Patient reports working on overhead reaching and passive stretching. States he needs to be stronger with overhead lifting to perform work duties. Pain Assessment - Pain Description Pain Location: Right shoulder Pain Description: nagging pain Current Pain Intensity: 0 at rest Interventions - Exercise/Activities/Manual Therapy Exercises/Activities: 58mins. In supine PROM/stretching all planes. Isometrics all directions, multiple reps. Increased to 10# wand due to patient request for overhead flexion. Blue theraband for right shoulder resist flex, ext, horz add, horz abd, and forward press. 3# dumbell for ROM in supine for flex, scap, and horizontal abd. Multi-gym for boxers punch motion 10#, 3s/10reps. Retraction 40 # 3s/10reps. 2# cuff weight to right wrist with 2# ball for "shot-putt" throw. Shelf reaching above shoulder height with 5# dumbell right UE. Bodyblade different positions for right UE. 3# wand for bilateral shoulder flexion standing with back against the wall, multiple reps. Doorway stretching. Total minutes of Exercise: 58mins Manual Therapy: NA HOME EXERCISE PROGRAM: PROM and isometrics. Biceps/triceps strengthening with elbow at side. Isometric biceps, triceps, shoulder add and extension. Biceps curl with small weight. Cuff series. Red and green theraband shoulder x4 direct. Blue theraband scap retract. Red theraband for overhead flexion and extension. Resistive shoulder ROM with light weights. Ball on wall. - Charges Total Direct Minutes: 58mins Total Treatment Time: 60mins Procedures billed for this date of service:: EX4 Assessment: Patient progressing well with strengthening and focusing on overhead. Patient Education: Home Exercise Program Patient demonstrates compliance with HEP?: Yes Short Term Goals Goal #1: Right AAROM shoulder flexion 120 degrees. Goal to be met by: 07/01/16 (100%) Progress towards Goal:: Met Goal #2: Right AAROM shoulder abduction 100 degrees. Goal to be met by: 07/01/16 (100%) Progress towards Goal:: Met Goal #3: Right shoulder AA external rotation 45 degrees. Goal to be met by: 07/01/16 (100%) Progress towards Goal:: Met Goal #4: Patient independent in beginning HEP. Goal to be met by: 07/01/16 (100%) Progress towards Goal:: Met Junior Software Developer Goals Goal #1: Patient independent with DC HEP. Goal to be met by: 10/14/16 (80%) Progress towards goal: Progressing Goal #2: Right shoulder AROM WFLs Goal to be met by: 10/14/16 Progress towards goal: Met Goal #3: Patient able to use RUE for all functional activities without pain. Goal to be met by: 10/14/16 (60%) Progress towards goal: Progressing Goal #4: Patient able to return to work without restrictions. Goal to be met by: 10/14/16 Progress towards goal: Not Met Plan PLAN OF CARE EXPIRES ON:: 10/14/16 ORDER # VISITS AND/OR THROUGH DATE: 10/14/2016 Extended with new orders PLAN: Continue Plan of Care
--- NOTE | 2016-09-23 13:25 | RS.OPPTDN ---
Subjective Date of Note: 09/23/16 Visit #: 39 Date of Evaluation: 06/14/16 (Sx. 11-09-16) Payer Source: Workman's Comp Treatment Diagnosis: Right RCR Current Subjective/complaints:: Reports he is increasing end range stretching and overhead reaching with HEP. Pain Assessment - Pain Description Pain Location: Right shoulder Pain Description: nagging pain Current Pain Intensity: 0 at rest Interventions - Exercise/Activities/Manual Therapy Exercises/Activities: 55mins. In supine PROM/stretching all planes. Isometrics all directions, multiple reps. 10# wand due to patient request for overhead flexion. Blue theraband for right shoulder resist flex, ext, horz add, horz abd , and forward press. 3# dumbell for ROM in supine for flex, scap, and horizontal abd. Multi-gym for boxers punch motion 10#, 4s/10reps. Retraction 40 # 5s/10reps. Shelf reaching above shoulder height with 5# dumbell right UE. Bodyblade different positions for right UE. Blue tubing for overhead flex/ extension, multiple reps. 2# dumbell for bilateral shoulder flexion standing with back against the wall, multiple reps. Doorway stretching. Total minutes of Exercise: 55mins Manual Therapy: NA HOME EXERCISE PROGRAM: PROM and isometrics. Biceps/triceps strengthening with elbow at side. Isometric biceps, triceps, shoulder add and extension. Biceps curl with small weight. Cuff series. Red and green theraband shoulder x4 direct. Blue theraband scap retract. Red theraband for overhead flexion and extension. Resistive shoulder ROM with light weights. Ball on wall. - Objective Findings Observations,measurements,etc.: Active right shoulder flexion 141 degrees, flexion with wand 149 degrees, and manual AA flexion 162 degrees, all in standing position at wall. - Charges Total Direct Minutes: 55mins Total Treatment Time: 55mins Procedures billed for this date of service:: EX4 Assessment: Patient progressing with strengthening above shoulder height. Patient Education: Home Exercise Program Patient demonstrates compliance with HEP?: Yes Short Term Goals Goal #1: Right AAROM shoulder flexion 120 degrees. Goal to be met by: 07/01/16 (100%) Progress towards Goal:: Met Goal #2: Right AAROM shoulder abduction 100 degrees. Goal to be met by: 07/01/16 (100%) Progress towards Goal:: Met Goal #3: Right shoulder AA external rotation 45 degrees. Goal to be met by: 07/01/16 (100%) Progress towards Goal:: Met Goal #4: Patient independent in beginning HEP. Goal to be met by: 07/01/16 (100%) Progress towards Goal:: Met Detention Goals Goal #1: Patient independent with DC HEP. Goal to be met by: 10/14/16 (80%) Progress towards goal: Progressing Goal #2: Right shoulder AROM WFLs Goal to be met by: 10/14/16 Progress towards goal: Met Goal #3: Patient able to use RUE for all functional activities without pain. Goal to be met by: 10/14/16 (60%) Progress towards goal: Progressing Goal #4: Patient able to return to work without restrictions. Goal to be met by: 10/14/16 Progress towards goal: Not Met Plan PLAN OF CARE EXPIRES ON:: 10/14/16 ORDER # VISITS AND/OR THROUGH DATE: 10/14/2016 Extended with new orders PLAN: Continue Plan of Care
--- NOTE | 2016-09-26 11:34 | RS.OPPTDN ---
Subjective Date of Note: 09/26/16 Visit #: 40 Date of Evaluation: 06/14/16 (Sx. 11-09-16) Payer Source: Workman's Comp Treatment Diagnosis: Right RCR Current Subjective/complaints:: Patient reports active right shoulder flexion is getting better, as well as lifting small to moderate weights above shoulder height. Pain Assessment - Pain Description Pain Location: Right shoulder Pain Description: occasional ache, mainly joint stiffness at end range. Current Pain Intensity: 0 at rest Interventions - Exercise/Activities/Manual Therapy Exercises/Activities: 55mins. In supine PROM/stretching all planes. Isometrics all directions, multiple reps. 10# for overhead flexion and chest press. Blue theraband for right shoulder resist flex, ext, horz add, horz abd, forward press , IR, and ER, 2s/10reps each. 3# dumbell for ROM in supine for flex, scap, IR and ER. Multi-gym for boxers punch motion increased to 20#, 4s/10reps. Retraction 40# 5s/10reps. Shelf reaching above shoulder height with 10# weight with bilateral UE's. Blue tubing for overhead flex/extension, multiple reps. 2# dumbell for bilateral shoulder flexion standing with back against the wall, multiple reps. 1# for abduction, multiple reps. Shot-putt throw and baseball throw with 2# weight, multiple reps. Doorway stretching. Total minutes of Exercise: 55mins Manual Therapy: NA HOME EXERCISE PROGRAM: PROM and isometrics. Biceps/triceps strengthening with elbow at side. Isometric biceps, triceps, shoulder add and extension. Biceps curl with small weight. Cuff series. Red and green theraband shoulder x4 direct. Blue theraband scap retract. Red theraband for overhead flexion and extension. Resistive shoulder ROM with light weights. Ball on wall. - Charges Total Direct Minutes: 55mins Total Treatment Time: 55mins Procedures billed for this date of service:: EX4 Assessment: Patient progressing well with strengthening over shoulder height. Patient Education: Home Exercise Program Patient demonstrates compliance with HEP?: Yes Short Term Goals Goal #1: Right AAROM shoulder flexion 120 degrees. Goal to be met by: 07/01/16 (100%) Progress towards Goal:: Met Goal #2: Right AAROM shoulder abduction 100 degrees. Goal to be met by: 07/01/16 (100%) Progress towards Goal:: Met Goal #3: Right shoulder AA external rotation 45 degrees. Goal to be met by: 07/01/16 (100%) Progress towards Goal:: Met Goal #4: Patient independent in beginning HEP. Goal to be met by: 07/01/16 (100%) Progress towards Goal:: Met [employer] Worker Helper Goals Goal #1: Patient independent with DC HEP. Goal to be met by: 10/14/16 (80%) Progress towards goal: Progressing Goal #2: Right shoulder AROM WFLs Goal to be met by: 10/14/16 Progress towards goal: Met Goal #3: Patient able to use RUE for all functional activities without pain. Goal to be met by: 10/14/16 (60%) Progress towards goal: Progressing Goal #4: Patient able to return to work without restrictions. Goal to be met by: 10/14/16 Progress towards goal: Not Met Plan PLAN OF CARE EXPIRES ON:: 10/14/16 ORDER # VISITS AND/OR THROUGH DATE: 10/14/2016 Extended with new orders PLAN: Continue Plan of Care (Progress strengthening with over shoulder height and overhead.)
--- NOTE | 2016-09-28 13:38 | RS.OPPTDN ---
Subjective Date of Note: 09/28/16 Visit #: 41 Date of Evaluation: 06/14/16 (Sx. 11-09-16) Payer Source: Workman's Comp Treatment Diagnosis: Right RCR Current Subjective/complaints:: Patient reports his right shoulder active flexion is improving. Pain Assessment - Pain Description Pain Location: Right shoulder Pain Description: occasional ache, mainly joint stiffness at end range. Current Pain Intensity: 0 at rest Interventions - Exercise/Activities/Manual Therapy Exercises/Activities: 55mins. In supine PROM/stretching all planes. Isometrics all directions, multiple reps. 10# for overhead flexion and chest press. Blue theraband for right shoulder resist flex, ext, horz add, horz abd, forward press , IR, and ER, 2s/10reps each. 3# dumbell for ROM in supine for flex, scap, IR and ER. Multi-gym for boxers punch motion increased to 20#, 4s/10reps. Retraction 40# 5s/10reps. Shelf reaching above shoulder height with 10# weight with bilateral UE's. Overhead triceps press with 5# cuff weight. Blue tubing for overhead flex/extension, multiple reps. 3# bilateral shoulder flexion standing with back against the wall, multiple reps. 1# cuff weight resistive flexion and abduction, multiple reps. Doorway stretching. Total minutes of Exercise: 55mins Manual Therapy: NA HOME EXERCISE PROGRAM: PROM and isometrics. Biceps/triceps strengthening with elbow at side. Isometric biceps, triceps, shoulder add and extension. Biceps curl with small weight. Cuff series. Red and green theraband shoulder x4 direct. Blue theraband scap retract. Red theraband for overhead flexion and extension. Resistive shoulder ROM with light weights. Ball on wall. - Charges Total Direct Minutes: 55mins Total Treatment Time: 55mins Procedures billed for this date of service:: EX4 Assessment: Patient continues to progress with ROM and strengthening exercise. Patient Education: Home Exercise Program Patient demonstrates compliance with HEP?: Yes Short Term Goals Goal #1: Right AAROM shoulder flexion 120 degrees. Goal to be met by: 07/01/16 (100%) Progress towards Goal:: Met Goal #2: Right AAROM shoulder abduction 100 degrees. Goal to be met by: 07/01/16 (100%) Progress towards Goal:: Met Goal #3: Right shoulder AA external rotation 45 degrees. Goal to be met by: 07/01/16 (100%) Progress towards Goal:: Met Goal #4: Patient independent in beginning HEP. Goal to be met by: 07/01/16 (100%) Progress towards Goal:: Met Bar Welder Goals Goal #1: Patient independent with DC HEP. Goal to be met by: 10/14/16 (80%) Progress towards goal: Progressing Goal #2: Right shoulder AROM WFLs Goal to be met by: 10/14/16 Progress towards goal: Met Goal #3: Patient able to use RUE for all functional activities without pain. Goal to be met by: 10/14/16 (60%) Progress towards goal: Progressing Goal #4: Patient able to return to work without restrictions. Goal to be met by: 10/14/16 Progress towards goal: Not Met Plan PLAN OF CARE EXPIRES ON:: 10/14/16 ORDER # VISITS AND/OR THROUGH DATE: 10/14/2016 Extended with new orders PLAN: Continue Plan of Care
--- NOTE | 2016-09-29 14:19 | RS.OPPTDN ---
Subjective Date of Note: 09/29/16 Visit #: 42 Date of Evaluation: 06/14/16 (Sx. 11-09-16) Payer Source: Workman's Comp Treatment Diagnosis: Right RCR Current Subjective/complaints:: Patient continues to see improvement in mobility and strength. Reports he goes back to his ortho , October 04. He looks forward to returning to work after that. Patient's case picker arrives to discuss progress. Pain Assessment - Pain Description Pain Location: Right shoulder Pain Description: occasional ache, mainly joint stiffness at end range. Current Pain Intensity: 0 at rest Interventions - Exercise/Activities/Manual Therapy Exercises/Activities: 55mins. In supine PROM/stretching all planes. Isometrics all directions, multiple reps. 10# for overhead flexion and chest press. Blue theraband for right shoulder resist flex, ext, horz add, horz abd, forward press , IR, and ER, 2s/10reps each. 3# dumbell for ROM in supine for flex, scap, IR and ER. Multi-gym for boxers punch motion increased to 20#, 4s/10reps. Retraction 40# 5s/10reps. Shelf reaching above shoulder height with 10# weight with bilateral UE's. Overhead triceps press with 5# cuff weight. Blue tubing for overhead flex/extension, multiple reps. 3# bilateral shoulder flexion standing with back against the wall, multiple reps. 1# cuff weight resistive flexion and abduction, multiple reps. Doorway stretching. Manual Therapy: NA HOME EXERCISE PROGRAM: PROM and isometrics. Biceps/triceps strengthening with elbow at side. Isometric biceps, triceps, shoulder add and extension. Biceps curl with small weight. Cuff series. Red and green theraband shoulder x4 direct. Blue theraband scap retract. Red theraband for overhead flexion and extension. Resistive shoulder ROM with light weights. Ball on wall. - Charges Total Direct Minutes: 55 Total Treatment Time: 55 Procedures billed for this date of service:: ex4 Assessment: Patient continues to progress well with overhead strengthening for the R UE and scapula. Patient eager to return to work. Patient Education: Education of diagnosis, Body/Joint mechanics, Home Exercise Program, Home Safety, Activity Modification, Education of Plan of Care Patient demonstrates compliance with HEP?: Yes Short Term Goals Goal #1: Right AAROM shoulder flexion 120 degrees. Goal to be met by: 07/01/16 (100%) Progress towards Goal:: Met Goal #2: Right AAROM shoulder abduction 100 degrees. Goal to be met by: 07/01/16 (100%) Progress towards Goal:: Met Goal #3: Right shoulder AA external rotation 45 degrees. Goal to be met by: 07/01/16 (100%) Progress towards Goal:: Met Goal #4: Patient independent in beginning HEP. 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 Goal to be met by: 10/14/16 (80%) Progress towards goal: Progressing Goal #2: Right shoulder AROM WFLs Goal to be met by: 10/14/16 Progress towards goal: Met Goal #3: Patient able to use RUE for all functional activities without pain. Goal to be met by: 10/14/16 (60%) Progress towards goal: Progressing Goal #4: Patient able to return to work without restrictions. Goal to be met by: 10/14/16 Progress towards goal: Not Met Plan PLAN OF CARE EXPIRES ON:: 10/14/16 ORDER # VISITS AND/OR THROUGH DATE: 10/14/2016 Extended with new orders PLAN: Progress Exercises (Return to MD next )
--- NOTE | 2016-10-03 16:29 | RS.OPPTDN ---
Subjective Date of Note: 10/03/16 Visit #: 43 Date of Evaluation: 06/14/16 (Sx. 11-09-16) Payer Source: Workman's Comp Treatment Diagnosis: Right RCR Current Subjective/complaints:: Patient reports his strength continues to improve. He continues to have difficulty with end ROM and with lifting overhead. He reports he is able to perfrom all daily activities below shoulder height, but is concerned about heavy lifting over shoulder height with return to work. Pain Assessment - Pain Description Pain Location: Right shoulder Pain Description: occasional ache, mainly joint stiffness at end range. Current Pain Intensity: 0 at rest Interventions - Exercise/Activities/Manual Therapy Exercises/Activities: 55mins. In supine PROM/stretching all planes. Isometrics all directions, multiple reps. 10# for overhead flexion and chest press. Blue theraband for right shoulder resist flex, ext, horz add, horz abd, forward press , IR, and ER, 2s/10reps each. 3# dumbell for ROM in supine for flex, scap, IR and ER. Multi-gym for boxers punch motion 20#, 4s/10reps. Retraction 40# 5s/ 10reps. Shelf reaching above shoulder height with 10# weight with bilateral UE' s. Overhead triceps press both UE, increased to 8# cuff weight. Chest pass with small ball at wall. Blue tubing for overhead flex/extension, multiple reps. 3# wand bilateral shoulder flexion standing with back against the wall, multiple reps. 2# resistive flexion and 1# abduction standing at wall, multiple reps. Bodyblade. Doorway stretching. Total minutes of Exercise: 55mins Manual Therapy: NA HOME EXERCISE PROGRAM: PROM and isometrics. Biceps/triceps strengthening with elbow at side. Isometric biceps, triceps, shoulder add and extension. Biceps curl with small weight. Cuff series. Red and green theraband shoulder x4 direct. Blue theraband scap retract. Red theraband for overhead flexion and extension. Resistive shoulder ROM with light weights. Ball on wall. - Objective Findings Observations,measurements,etc.: Active right shoulder flexion 144 degrees (left shoulder 165 degrees). - Charges Total Direct Minutes: 55mins Total Treatment Time: 55mins Procedures billed for this date of service:: EX4 Assessment: AROM and strengthening of right shoulder continue to progress but remain limited. Patient able to perform all daily activities below shoulder height, but will have difficulty with heavy lifting that is required with some work duties. 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 Patient Education: Body/Joint mechanics, Home Exercise Program Patient demonstrates compliance with HEP?: Yes Short Term Goals Goal #1: Right AAROM shoulder flexion 120 degrees. Goal to be met by: 07/01/16 (100%) Progress towards Goal:: Met Goal #2: Right AAROM shoulder abduction 100 degrees. Goal to be met by: 07/01/16 (100%) Progress towards Goal:: Met Goal #3: Right shoulder AA external rotation 45 degrees. Goal to be met by: 07/01/16 (100%) Progress towards Goal:: Met Goal #4: Patient independent in beginning HEP. Goal to be met by: 07/01/16 (100%) Progress towards Goal:: Met Snf Goals Goal #1: Patient independent with DC HEP. Goal to be met by: 10/14/16 (100%) Progress towards goal: Met Goal #2: Right shoulder AROM WFLs Goal to be met by: 10/14/16 Progress towards goal: Met Goal #3: Patient able to use RUE for all functional activities without pain. Goal to be met by: 10/14/16 (90%) Progress towards goal: Progressing Comments: All functional activities below shoulder height Goal #4: Patient able to return to work without restrictions. Goal to be met by: 10/14/16 Progress towards goal: Not Met Plan PLAN OF CARE EXPIRES ON:: 10/14/16 ORDER # VISITS AND/OR THROUGH DATE: 10/14/2016 Extended with new orders PLAN: Hold (Patient to return for a follow-up appointment with physician.)
--- NOTE | 2016-10-11 11:40 | RS.OPPTDN ---
Subjective Date of Note: 10/11/16 Visit #: 44 Date of Evaluation: 06/14/16 (Sx. 11-09-16) Payer Source: Workman's Comp Treatment Diagnosis: Right RCR Current Subjective/complaints:: Patient reports he continues to work on active reaching overhead. Reports weakness with resistive exercise over shoulder height , especially with abduction. Pain Assessment - Pain Description Pain Location: Right shoulder Pain Description: occasional ache, mainly joint stiffness at end range. Current Pain Intensity: 0 at rest Interventions - Exercise/Activities/Manual Therapy Exercises/Activities: 55mins. In supine PROM/stretching all planes. Isometrics all directions, multiple reps. 3# and 5# dumbells for resistive flexion, scaption, and horizontal abduction. Blue theraband for right shoulder resist flex, ext, horz add, horz abd, forward press, IR, and ER, 2s/10reps each. In standing, 3# dumbell with flexion and scaption and 2# for abduction, multiple sets of 5reps. Multi-gym for boxers punch motion 20#, 4s/10reps. Retraction 40# 4s/10reps. Shelf reaching above shoulder height with 10# weight with bilateral UE's. Overhead triceps press both UE, 8# cuff weight. Yellow theraband for bilateral scaption in standing, 3s/10reps. Green theraband for overhead flex/ extension, multiple reps. 3# wand bilateral shoulder flexion standing with back against the wall, multiple reps. Bodyblade. 4# to right wrist for ball on the wall. Ended with additional passive stretching all directions, patient in supine. Total minutes of Exercise: 55mins Manual Therapy: NA HOME EXERCISE PROGRAM: PROM and isometrics. Biceps/triceps strengthening with elbow at side. Isometric biceps, triceps, shoulder add and extension. Biceps curl with small weight. Cuff series. Red and green theraband shoulder x4 direct. Blue theraband scap retract. Red theraband for overhead flexion and extension. Resistive shoulder ROM with light weights. Ball on wall. - Charges Total Direct Minutes: 55mins Total Treatment Time: 55mins Procedures billed for this date of service:: EX4 Assessment: Patient progressing with strengthening at and above shoulder height. Patient Education: Body/Joint mechanics, Home Exercise Program Patient demonstrates compliance with HEP?: Yes Short Term Goals Goal #1: Right AAROM shoulder flexion 120 degrees. Goal to be met by: 07/01/16 (100%) Progress towards Goal:: Met Goal #2: Right AAROM shoulder abduction 100 degrees. Goal to be met by: 07/01/16 (100%) Progress towards Goal:: Met Goal #3: Right shoulder AA external rotation 45 degrees. Goal to be met by: 07/01/16 (100%) Progress towards Goal:: Met Goal #4: Patient independent in beginning HEP. Goal to be met by: 07/01/16 (100%) Progress towards Goal:: Met Care Professionals Goals Goal #1: Patient independent with DC HEP. Goal to be met by: 10/14/16 (100%) Progress towards goal: Met Goal #2: Right shoulder AROM WFLs Goal to be met by: 10/14/16 Progress towards goal: Met Goal #3: Patient able to use RUE for all functional activities without pain. Goal to be met by: 11/16/16 (90%) Progress towards goal: Progressing Goal #4: Patient able to return to work without restrictions. Goal to be met by: 11/16/16 Progress towards goal: Not Met Plan PLAN OF CARE EXPIRES ON:: 11/16/16 ORDER # VISITS AND/OR THROUGH DATE: 11/16/2016 Extended with new orders PLAN: Continue Plan of Care
--- NOTE | 2016-10-13 09:30 | RS.OPPTDN ---
Subjective Date of Note: 10/12/16 Visit #: 45 Date of Evaluation: 06/14/16 (Sx. 11-09-16) Payer Source: Workman's Comp Treatment Diagnosis: Right RCR Current Subjective/complaints:: Patient reports increased soreness right shoulder, scapular region and along the latissimus Pain Assessment - Pain Description Pain Location: Right shoulder Pain Description: occasional ache, mainly joint stiffness at end range. Current Pain Intensity: 0 at rest - Heat/Cryotherapy Treatment: Hot Pack ([id number] to the right shoulder prior to EX due to increased soreness today. Patient in sitting. ) Interventions - Exercise/Activities/Manual Therapy Exercises/Activities: 45mins. In supine PROM/stretching all planes. Isometrics all directions, multiple reps. 3# and 5# dumbells for resistive flexion, scaption, and horizontal abduction. Blue theraband for right shoulder resist flex, ext, horz add, horz abd, forward press, IR, and ER, 2s/10reps each. In standing, reduced to 2# dumbell with flexion and scaption and abduction, multiple sets of 5reps. Green theraband for overhead flex/extension, multiple reps. 3# wand bilateral shoulder flexion standing with back against the wall, multiple reps. Bodyblade. Decreased to 3# to right wrist for ball on the wall. Ended with additional passive stretching at doorway. Total minutes of Exercise: 45mins Manual Therapy: NA HOME EXERCISE PROGRAM: PROM and isometrics. Biceps/triceps strengthening with elbow at side. Isometric biceps, triceps, shoulder add and extension. Biceps curl with small weight. Cuff series. Red and green theraband shoulder x4 direct. Blue theraband scap retract. Red theraband for overhead flexion and extension. Resistive shoulder ROM with light weights. Ball on wall. - Charges Total Direct Minutes: 45mins Total Treatment Time: 60mins Procedures billed for this date of service:: HP, EX3 Assessment: Patient with an exacerbation of soreness right shoulder and through the right flank region. Patient Education: Home Exercise Program Patient demonstrates compliance with HEP?: Yes Short Term Goals Goal #1: Right AAROM shoulder flexion 120 degrees. Goal to be met by: 07/01/16 (100%) Progress towards Goal:: Met Goal #2: Right AAROM shoulder abduction 100 degrees. Goal to be met by: 07/01/16 (100%) Progress towards Goal:: Met Goal #3: Right shoulder AA external rotation 45 degrees. Goal to be met by: 07/01/16 (100%) Progress towards Goal:: Met Goal #4: Patient independent in beginning HEP. Goal to be met by: 07/01/16 (100%) Progress towards Goal:: Met Computer Support Specialist Goals Goal #1: Patient independent with DC HEP. Goal to be met by: 10/14/16 (100%) Progress towards goal: Met Goal #2: Right shoulder AROM WFLs Goal to be met by: 10/14/16 Progress towards goal: Met Goal #3: Patient able to use RUE for all functional activities without pain. Goal to be met by: 11/16/16 (90%) Progress towards goal: Progressing Goal #4: Patient able to return to work without restrictions. Goal to be met by: 11/16/16 Progress towards goal: Not Met Plan PLAN OF CARE EXPIRES ON:: 11/16/16 ORDER # VISITS AND/OR THROUGH DATE: 11/16/2016 Extended with new orders PLAN: Continue Plan of Care
--- NOTE | 2016-10-13 11:58 | RS.OPPTDN ---
Subjective Date of Note: 10/13/16 Visit #: 46 Date of Evaluation: 06/14/16 (Sx. 11-09-16) Payer Source: Workman's Comp Treatment Diagnosis: Right RCR Current Subjective/complaints:: Cheryl reports continued soreness in the right shoulder and scapular region, but feels much better today. Asks to start with HP again today for a few minutes prior to EX. Pain Assessment - Pain Description Pain Location: Right shoulder Pain Description: occasional ache, mainly joint stiffness at end range. Current Pain Intensity: 0 at rest , mild soreness - Heat/Cryotherapy Treatment: Hot Pack ([id number] to the right shoulder prior to EX. Patient in sitting. ) Interventions - Exercise/Activities/Manual Therapy Exercises/Activities: 55mins. In supine PROM/stretching all planes. Isometrics all directions, multiple reps. 3# and 5# dumbells for resistive flexion, scaption, and horizontal abduction. Blue theraband for right shoulder resist flex, ext, horz add, horz abd, forward press, IR, and ER, 2s/10reps each. Bodyblade with bilateral UE and with right in supine. In standing, resumed 3# dumbell for flexion and scaption and 2# for abduction, multiple sets of 5reps. Green theraband for overhead flex/extension, multiple reps. 3# wand bilateral shoulder flexion standing with back against the wall, multiple reps. Bodyblade in standing. Overhead right shoulder press with 5#. Ended with doorway stretching. Total minutes of Exercise: 55mins Manual Therapy: NA HOME EXERCISE PROGRAM: PROM and isometrics. Biceps/triceps strengthening with elbow at side. Isometric biceps, triceps, shoulder add and extension. Biceps curl with small weight. Cuff series. Red and green theraband shoulder x4 direct. Blue theraband scap retract. Red theraband for overhead flexion and extension. Resistive shoulder ROM with light weights. Ball on wall. - Charges Total Direct Minutes: 55mins Total Treatment Time: 70mins Procedures billed for this date of service:: HP, EX4 Assessment: Patient again progressing with strengtheing exercise and focusing of overhead work. Patient Education: Home Exercise Program Patient demonstrates compliance with HEP?: Yes Short Term Goals Goal #1: Right AAROM shoulder flexion 120 degrees. Goal to be met by: 07/01/16 (100%) Progress towards Goal:: Met Goal #2: Right AAROM shoulder abduction 100 degrees. Goal to be met by: 07/01/16 (100%) Progress towards Goal:: Met Goal #3: Right shoulder AA external rotation 45 degrees. Goal to be met by: 07/01/16 (100%) Progress towards Goal:: Met Goal #4: Patient independent in beginning HEP. Goal to be met by: 07/01/16 (100%) Progress towards Goal:: Met Network Development Coordinator Goals Goal #1: Patient independent with DC HEP. Goal to be met by: 10/14/16 (100%) Progress towards goal: Met Goal #2: Right shoulder AROM WFLs Goal to be met by: 10/14/16 Progress towards goal: Met Goal #3: Patient able to use RUE for all functional activities without pain. Goal to be met by: 11/16/16 (90%) Progress towards goal: Progressing Goal #4: Patient able to return to work without restrictions. Goal to be met by: 11/16/16 Progress towards goal: Not Met Plan PLAN OF CARE EXPIRES ON:: 11/16/16 ORDER # VISITS AND/OR THROUGH DATE: 11/16/2016 Extended with new orders PLAN: Continue Plan of Care
== END 2016-10-16 ==
PROVIDERS: ATTEND Orthopaedic Surgery
DX: M25.511 Pain in right shoulder (principal)

== ENCOUNTER 2016-11-09 10:00 | Outpatient (RCR) ==
--- NOTE | 2016-10-19 16:00 | RS.OPPTDN ---
Subjective Date of Note: 10/19/16 Visit #: 47 Date of Evaluation: 06/14/16 (Sx. 11-09-16) Payer Source: Workman's Comp Treatment Diagnosis: Right RCR Current Subjective/complaints:: Patient reports he has seen a lot of improvement in strength and ROM over the last 2 weeks. Reports progressing overhead exercise at home. Pain Assessment - Pain Description Pain Location: Right shoulder Pain Description: occasional ache, mainly joint stiffness at end range. Current Pain Intensity: 0 at rest, mild soreness Interventions - Exercise/Activities/Manual Therapy Exercises/Activities: 55mins. In supine PROM/stretching all planes. Isometrics all directions, multiple reps. 3# dumbell for resistive flexion, scaption, and horizontal abduction. Blue theraband for right shoulder resist flex, ext, horz add, horz abd, forward press, IR, and ER, 2s/10reps each. Bodyblade with bilateral UE and with right in supine. In standing, 3# dumbell for ocillating flexion, scaption, and abduction at shoulder height. Green theraband for overhead flex/extension, multiple reps. Bodyblade in standing. Cable pulleys at [employer] for scap retaction 40# and forward chest press 40#, all multiple reps. 10# weight for overhead shelf reaching. 4# cuff weight to right wrist for ball on wall. Ended with additional PROM and end range stretching. Total minutes of Exercise: 55mins Manual Therapy: NA HOME EXERCISE PROGRAM: PROM and isometrics. Biceps/triceps strengthening with elbow at side. Isometric biceps, triceps, shoulder add and extension. Biceps curl with small weight. Cuff series. Red and green theraband shoulder x4 direct. Blue theraband scap retract. Red theraband for overhead flexion and extension. Resistive shoulder ROM with light weights. Ball on wall. - Charges Total Direct Minutes: 55mins Total Treatment Time: 55mins Procedures billed for this date of service:: EX4 Assessment: Patient progressing with strengtheing exercise and showing improvement in end-range joint tightness. Patient Education: Home Exercise Program Patient demonstrates compliance with HEP?: Yes Short Term Goals Goal #1: Right AAROM shoulder flexion 120 degrees. Goal to be met by: 07/01/16 (100%) Progress towards Goal:: Met Goal #2: Right AAROM shoulder abduction 100 degrees. Goal to be met by: 07/01/16 (100%) Progress towards Goal:: Met Goal #3: Right shoulder AA external rotation 45 degrees. Goal to be met by: 07/01/16 (100%) Progress towards Goal:: Met Goal #4: Patient independent in beginning HEP. Goal to be met by: 07/01/16 (100%) Progress towards Goal:: Met Hand Packager Goals Goal #1: Patient independent with DC HEP. Goal to be met by: 10/14/16 (100%) Progress towards goal: Met Goal #2: Right shoulder AROM WFLs Goal to be met by: 10/14/16 Progress towards goal: Met Goal #3: Patient able to use RUE for all functional activities without pain. Goal to be met by: 11/16/16 (90%) Progress towards goal: Progressing Goal #4: Patient able to return to work without restrictions. Goal to be met by: 11/16/16 Progress towards goal: Not Met Plan PLAN OF CARE EXPIRES ON:: 11/16/16 ORDER # VISITS AND/OR THROUGH DATE: 11/16/2016 Extended with new orders PLAN: Continue Plan of Care
--- NOTE | 2016-10-21 12:06 | RS.OPPTDN ---
Subjective Date of Note: 10/21/16 Visit #: 49 Date of Evaluation: 06/14/16 (Sx. 11-09-16) Payer Source: Workman's Comp Treatment Diagnosis: Right RCR Current Subjective/complaints:: Patient reports continued improvement in end ROM of right shoulder and with strengthening activities at and above shoulder height. Pain Assessment - Pain Description Pain Location: Right shoulder Pain Description: occasional ache, mainly joint stiffness at end range. Current Pain Intensity: 0 at rest, mild soreness Interventions - Exercise/Activities/Manual Therapy Exercises/Activities: 55mins. In supine PROM/stretching all planes. Isometrics all directions, multiple reps. In standing, green theraband for overhead flex/ extension, multiple reps. Bodyblade in standing. Cable pulleys at [employer] for scap retaction 40# and forward chest press 40#, all multiple reps. 10# weight for overhead shelf reaching. 4# cuff weight to right wrist for large ball on wall. In sitting, blue theraband for lat pull and forward pulldowns. In supine. In standing, modified pull-ups at overhead bars, 4s/5reps. PROM and end range stretching of right shoulder. 3# dumbell for ocillating movement holding at 90 degrees flexion, scaption, abduction, "empty-can", and in extension, all 2s/ 10reps. 10# dumbell in standing for overhead triceps press bilateral UE's, 2s/ 10reps. Wall push-ups. Self stretching. Total minutes of Exercise: 55mins Manual Therapy: NA HOME EXERCISE PROGRAM: PROM and isometrics. Biceps/triceps strengthening with elbow at side. Isometric biceps, triceps, shoulder add and extension. Biceps curl with small weight. Cuff series. Red and green theraband shoulder x4 direct. Blue theraband scap retract. Red theraband for overhead flexion and extension. Resistive shoulder ROM with light weights. Ball on wall. - Charges Total Direct Minutes: 55mins Total Treatment Time: 60mins Procedures billed for this date of service:: EX4 Assessment: Patient progressing well with all exercise. Patient Education: Home Exercise Program Patient demonstrates compliance with HEP?: Yes Short Term Goals Goal #1: Right AAROM shoulder flexion 120 degrees. Goal to be met by: 07/01/16 (100%) Progress towards Goal:: Met Goal #2: Right AAROM shoulder abduction 100 degrees. Goal to be met by: 07/01/16 (100%) Progress towards Goal:: Met Goal #3: Right shoulder AA external rotation 45 degrees. Goal to be met by: 07/01/16 (100%) Progress towards Goal:: Met Goal #4: Patient independent in beginning HEP. Goal to be met by: 07/01/16 (100%) Progress towards Goal:: Met Shelter Goals Goal #1: Patient independent with DC HEP. Goal to be met by: 10/14/16 (100%) Progress towards goal: Met Goal #2: Right shoulder AROM WFLs Goal to be met by: 10/14/16 Progress towards goal: Met Goal #3: Patient able to use RUE for all functional activities without pain. Goal to be met by: 11/16/16 (90%) Progress towards goal: Progressing Goal #4: Patient able to return to work without restrictions. Goal to be met by: 11/16/16 Progress towards goal: Not Met Plan PLAN OF CARE EXPIRES ON:: 11/16/16 ORDER # VISITS AND/OR THROUGH DATE: 11/16/2016 Extended with new orders PLAN: Progress Exercises (Continue to progress strengthening to prepare patient for return to work.)
--- NOTE | 2016-10-25 11:20 | RS.OPPTDN ---
Subjective Date of Note: 10/17/16 Visit #: 47 Date of Evaluation: 06/14/16 (Sx. 11-09-16) Payer Source: Workman's Comp Treatment Diagnosis: Right RCR Current Subjective/complaints:: No new c/o's. He says he is not able to lift very much weight over his head, but is glad to be progressing weight in PT. Pain Assessment - Pain Description Pain Location: Right shoulder Pain Description: occasional ache, mainly joint stiffness at end range. Current Pain Intensity: 0 at rest , mild soreness Interventions - Exercise/Activities/Manual Therapy Exercises/Activities: 55mins. In supine PROM/stretching all planes. Isometrics all directions, multiple reps. 3# and 5# dumbells for resistive flexion, scaption, and horizontal abduction. Blue theraband for right shoulder resist flex, ext, horz add, horz abd, forward press, IR, and ER, 2s/10reps each. Bodyblade with bilateral UE and with right in supine. In standing, resumed 3# dumbell for flexion and scaption and 2# for abduction, multiple sets of 5reps. Green theraband for overhead flex/extension, multiple reps. 3# wand bilateral shoulder flexion standing with back against the wall, multiple reps. Bodyblade in standing. Overhead right shoulder press with 5#. Total minutes of Exercise: 55 Manual Therapy: NA HOME EXERCISE PROGRAM: PROM and isometrics. Biceps/triceps strengthening with elbow at side. Isometric biceps, triceps, shoulder add and extension. Biceps curl with small weight. Cuff series. Red and green theraband shoulder x4 direct. Blue theraband scap retract. Red theraband for overhead flexion and extension. Resistive shoulder ROM with light weights. Ball on wall. - Charges Total Direct Minutes: 55 Total Treatment Time: 55 Procedures billed for this date of service:: ex4 Assessment: Patient continues to ketty all progressive therex well without c/o other than general muscle fatigue. Patient Education: Education of diagnosis, Body/Joint mechanics, Home Exercise Program, Home Safety, Activity Modification, Education of Plan of Care Patient demonstrates compliance with HEP?: Yes Short Term Goals Goal #1: Right AAROM shoulder flexion 120 degrees. Goal to be met by: 07/01/16 (100%) Progress towards Goal:: Met Goal #2: Right AAROM shoulder abduction 100 degrees. Goal to be met by: 07/01/16 (100%) Progress towards Goal:: Met Goal #3: Right shoulder AA external rotation 45 degrees. Goal to be met by: 07/01/16 (100%) Progress towards Goal:: Met Goal #4: Patient independent in beginning HEP. Goal to be met by: 07/01/16 (100%) Progress towards Goal:: Met Shelter Goals Goal #1: Patient independent with DC HEP. Goal to be met by: 10/14/16 (100%) Progress towards goal: Met Goal #2: Right shoulder AROM WFLs Goal to be met by: 10/14/16 Progress towards goal: Met Goal #3: Patient able to use RUE for all functional activities without pain. Goal to be met by: 11/16/16 (90%) Progress towards goal: Progressing Goal #4: Patient able to return to work without restrictions. Goal to be met by: 11/16/16 Progress towards goal: Not Met Plan PLAN OF CARE EXPIRES ON:: 11/16/16 ORDER # VISITS AND/OR THROUGH DATE: 11/16/2016 Extended with new orders PLAN: Progress Exercises
--- NOTE | 2016-10-25 11:30 | RS.OPPTDN ---
Subjective Date of Note: 10/25/16 Visit #: 50 Date of Evaluation: 06/14/16 (Sx. 04-27-16) Payer Source: Workman's Comp Treatment Diagnosis: Right RCR Current Subjective/complaints:: Patient says he believes he is improving with strengthening therex overhead. Work comp porter sample case here today to verify progress. Patient admits he initially had soreness to the R scapula following recent progression of therex, but since has completely resolved. Pain Assessment - Pain Description Pain Location: Right shoulder Pain Description: occasional ache, mainly joint stiffness at end range. Current Pain Intensity: 0 at rest , mild soreness Interventions - Exercise/Activities/Manual Therapy Exercises/Activities: 55mins. In supine PROM/stretching all planes. Isometrics all directions, multiple reps. 3# and 5# dumbells for resistive flexion, scaption, and horizontal abduction. Blue theraband for right shoulder resist flex, ext, horz add, horz abd, forward press, IR, and ER, 2s/10reps each. Bodyblade with bilateral UE and with right in supine. In standing, resumed 3# dumbell for flexion and scaption and 2# for abduction, multiple sets of 5reps. Green theraband for overhead flex/extension, multiple reps. 3# wand bilateral shoulder flexion standing with back against the wall, multiple reps. Bodyblade in standing. Overhead right shoulder press with 5#. Manual Therapy: NA HOME EXERCISE PROGRAM: PROM and isometrics. Biceps/triceps strengthening with elbow at side. Isometric biceps, triceps, shoulder add and extension. Biceps curl with small weight. Cuff series. Red and green theraband shoulder x4 direct. Blue theraband scap retract. Red theraband for overhead flexion and extension. Resistive shoulder ROM with light weights. Ball on wall. - Charges Total Direct Minutes: 55 Total Treatment Time: 55 Procedures billed for this date of service:: ex4 Assessment: Increased tightness noted with stretching into shoulder flexion and abd today. No c/o's throughout progressive therex besides general fatigue. Patient Education: Education of diagnosis, Body/Joint mechanics, Home Exercise Program, Home Safety, Activity Modification, Education of Plan of Care Patient demonstrates compliance with HEP?: Yes Short Term Goals Goal #1: Right AAROM shoulder flexion 120 degrees. Goal to be met by: 07/01/16 (100%) Progress towards Goal:: Met Goal #2: Right AAROM shoulder abduction 100 degrees. Goal to be met by: 07/01/16 (100%) Progress towards Goal:: Met Goal #3: Right shoulder AA external rotation 45 degrees. Goal to be met by: 07/01/16 (100%) Progress towards Goal:: Met Goal #4: Patient independent in beginning HEP. Goal to be met by: 07/01/16 (100%) Progress towards Goal:: Met Seed Corn Production Manager Goals Goal #1: Patient independent with DC HEP. Goal to be met by: 10/14/16 (100%) Progress towards goal: Met Goal #2: Right shoulder AROM WFLs Goal to be met by: 10/14/16 Progress towards goal: Met Goal #3: Patient able to use RUE for all functional activities without pain. Goal to be met by: 11/16/16 (90%) Progress towards goal: Progressing Goal #4: Patient able to return to work without restrictions. Goal to be met by: 11/16/16 Progress towards goal: Not Met Plan PLAN OF CARE EXPIRES ON:: 11/16/16 ORDER # VISITS AND/OR THROUGH DATE: 11/16/2016 Extended with new orders PLAN: Progress Exercises
--- NOTE | 2016-10-27 14:55 | RS.OPPTDN ---
Subjective Date of Note: 10/27/16 Visit #: 51 Date of Evaluation: 06/14/16 (Sx. 04-27-) Payer Source: Workman's Comp Treatment Diagnosis: Right RCR Current Subjective/complaints:: Patient continues to report improvement in strength. States he was able to do more activites at home the last few days, below shoulder height, without difficulty. Pain Assessment - Pain Description Pain Location: Right shoulder Pain Description: occasional ache, mainly joint stiffness at end range. Current Pain Intensity: 0 at rest , mild soreness Interventions - Exercise/Activities/Manual Therapy Exercises/Activities: 55mins. In supine PROM/stretching all planes. Isometrics all directions, multiple reps. [employer]gym stations for scap retraction 40#, chest press 60#, each 3s/10reps each. Large therapy ball on wall with 3# cuff to each wrist, 3sets. Body weight pull ups on overhead bars, 4s/5reps. Bodyblade with bilateral UE and with right in supine. Increased to black theraband for overhead flex/extension, multiple reps. 3# wand bilateral shoulder flexion standing with back against the wall, multiple reps. Bodyblade in standing. Ocillating shoulder flex, scap, abd, ext, and "empty-can" positions , All approx 90 degrees shoulder flex position, 2s/10reps each. Overhead right shoulder press with 8#. Total minutes of Exercise: 55mins Manual Therapy: NA HOME EXERCISE PROGRAM: PROM and isometrics. Biceps/triceps strengthening with elbow at side. Isometric biceps, triceps, shoulder add and extension. Biceps curl with small weight. Cuff series. Red and green theraband shoulder x4 direct. Blue theraband scap retract. Red theraband for overhead flexion and extension. Resistive shoulder ROM with light weights. Ball on wall. - Charges Total Direct Minutes: 55mins Total Treatment Time: 55mins Procedures billed for this date of service:: EX4 Assessment: Patient continues to progress well with strengthening. Patient Education: Home Exercise Program Patient demonstrates compliance with HEP?: Yes Short Term Goals Goal #1: Right AAROM shoulder flexion 120 degrees. Goal to be met by: 07/01/16 (100%) Progress towards Goal:: Met Goal #2: Right AAROM shoulder abduction 100 degrees. Goal to be met by: 07/01/16 (100%) Progress towards Goal:: Met Goal #3: Right shoulder AA external rotation 45 degrees. Goal to be met by: 07/01/16 (100%) Progress towards Goal:: Met Goal #4: Patient independent in beginning HEP. Goal to be met by: 07/01/16 (100%) Progress towards Goal:: Met Support Staff Goals Goal #1: Patient independent with DC HEP. Goal to be met by: 10/14/16 (100%) Progress towards goal: Met Goal #2: Right shoulder AROM WFLs Goal to be met by: 10/14/16 Progress towards goal: Met Goal #3: Patient able to use RUE for all functional activities without pain. Goal to be met by: 11/16/16 (90%) Progress towards goal: Progressing Goal #4: Patient able to return to work without restrictions. Goal to be met by: 11/16/16 Progress towards goal: Not Met Plan PLAN OF CARE EXPIRES ON:: 11/16/16 ORDER # VISITS AND/OR THROUGH DATE: 11/16/2016 Extended with new orders PLAN: Continue Plan of Care
--- NOTE | 2016-10-28 14:23 | RS.OPPTDN ---
Subjective Date of Note: 10/28/16 Visit #: 52 Date of Evaluation: 06/14/16 (Sx. 11-09-16) Payer Source: Workman's Comp Treatment Diagnosis: Right RCR Current Subjective/complaints:: No new c/o. Patient reports continued progress with strengthening. Pain Assessment - Pain Description Pain Location: Right shoulder Pain Description: occasional ache, mainly joint stiffness at end range. Current Pain Intensity: 0 at rest , mild soreness Interventions - Exercise/Activities/Manual Therapy Exercises/Activities: 55mins. In supine PROM/stretching all planes. Isometrics all directions, multiple reps. Multi-gym stations for scap retraction 40#, chest press 60#, each 3s/10reps each. Large therapy ball on wall with 3# cuff to each wrist, 3sets. Body weight pull ups on overhead bars, 4s/5reps. Bodyblade with bilateral UE and with right in supine. Black theraband for overhead flex/extension, multiple reps. 3# wand bilateral shoulder flexion standing with back against the wall, multiple reps. Bodyblade in standing. Ocillating shoulder flex, scap, abd, ext, and "empty-can" positions, 10reps each with 5# and 10reps each with 4#, all approx 90 degrees shoulder flex position. Overhead right shoulder press with 8#. Wall Total minutes of Exercise: 55mins Manual Therapy: NA HOME EXERCISE PROGRAM: PROM and isometrics. Biceps/triceps strengthening with elbow at side. Isometric biceps, triceps, shoulder add and extension. Biceps curl with small weight. Cuff series. Red and green theraband shoulder x4 direct. Blue theraband scap retract. Red theraband for overhead flexion and extension. Resistive shoulder ROM with light weights. Ball on wall. - Charges Total Direct Minutes: 55mins Total Treatment Time: 55mins Procedures billed for this date of service:: EX4 Assessment: Patient progressing well with strengthening. Patient Education: Home Exercise Program Patient demonstrates compliance with HEP?: Yes Short Term Goals Goal #1: Right AAROM shoulder flexion 120 degrees. Goal to be met by: 07/01/16 (100%) Progress towards Goal:: Met Goal #2: Right AAROM shoulder abduction 100 degrees. Goal to be met by: 07/01/16 (100%) Progress towards Goal:: Met Goal #3: Right shoulder AA external rotation 45 degrees. Goal to be met by: 07/01/16 (100%) Progress towards Goal:: Met Goal #4: Patient independent in beginning HEP. Goal to be met by: 07/01/16 (100%) Progress towards Goal:: Met Fdc Goals Goal #1: Patient independent with DC HEP. Goal to be met by: 10/14/16 (100%) Progress towards goal: Met Goal #2: Right shoulder AROM WFLs Goal to be met by: 10/14/16 Progress towards goal: Met Goal #3: Patient able to use RUE for all functional activities without pain. Goal to be met by: 11/16/16 (90%) Progress towards goal: Progressing Goal #4: Patient able to return to work without restrictions. Goal to be met by: 11/16/16 Progress towards goal: Not Met Plan PLAN OF CARE EXPIRES ON:: 11/16/16 ORDER # VISITS AND/OR THROUGH DATE: 11/16/2016 Extended with new orders PLAN: Continue Plan of Care
--- NOTE | 2016-11-01 13:54 | RS.OPPTDN ---
Subjective Date of Note: 11/01/16 Visit #: 53 Date of Evaluation: 06/14/16 (Sx. 11-09-16) Payer Source: Workman's Comp Treatment Diagnosis: Right RCR Current Subjective/complaints:: Patient reports continued improvement in right UE strength and ability to perform more activities at home. Pain Assessment - Pain Description Pain Location: Right shoulder Pain Description: occasional ache, mainly joint stiffness at end range. Current Pain Intensity: 0 at rest , mild soreness Interventions - Exercise/Activities/Manual Therapy Exercises/Activities: 55mins. In supine PROM/stretching all planes. Isometrics all directions, multiple reps. Multi-gym stations for scap retraction 40#, chest press 60#, each 3s/10reps each. Overhead shelf reaching with 5# weight and 4# cuff weights to each wrist. Large therapy ball on wall with cuff weights to each wrist increased to 4#, 3sets. Body weight pull ups on overhead bars, 4s/ 5reps. Bodyblade with bilateral UE and with right in supine. Black theraband for overhead flex/extension, multiple reps. 3# wand bilateral shoulder flexion standing with back against the wall, multiple reps. Bodyblade in standing. Ocillating shoulder flex, scap, abd, ext, and "empty-can" positions, increased to 2s/10reps each with 5# at 90 degrees shoulder flex position. Overhead right shoulder press with 8#. Wall push ups. Total minutes of Exercise: 55mins Manual Therapy: NA HOME EXERCISE PROGRAM: PROM and isometrics. Biceps/triceps strengthening with elbow at side. Isometric biceps, triceps, shoulder add and extension. Biceps curl with small weight. Cuff series. Red and green theraband shoulder x4 direct. Blue theraband scap retract. Red theraband for overhead flexion and extension. Resistive shoulder ROM with light weights. Ball on wall. - Charges Total Direct Minutes: 55mins Total Treatment Time: 55mins Procedures billed for this date of service:: EX4 Assessment: Patient continues to increase strengthening exercise. Patient Education: Home Exercise Program Patient demonstrates compliance with HEP?: Yes Short Term Goals Goal #1: Right AAROM shoulder flexion 120 degrees. Goal to be met by: 07/01/16 (100%) Progress towards Goal:: Met Goal #2: Right AAROM shoulder abduction 100 degrees. Goal to be met by: 07/01/16 (100%) Progress towards Goal:: Met Goal #3: Right shoulder AA external rotation 45 degrees. Goal to be met by: 07/01/16 (100%) Progress towards Goal:: Met Goal #4: Patient independent in beginning HEP. Goal to be met by: 07/01/16 (100%) Progress towards Goal:: Met Jail Goals Goal #1: Patient independent with DC HEP. Goal to be met by: 10/14/16 (100%) Progress towards goal: Met Goal #2: Right shoulder AROM WFLs Goal to be met by: 10/14/16 Progress towards goal: Met Goal #3: Patient able to use RUE for all functional activities without pain. Goal to be met by: 11/16/16 (90%) Progress towards goal: Progressing Goal #4: Patient able to return to work without restrictions. Goal to be met by: 11/16/16 Progress towards goal: Not Met Plan PLAN OF CARE EXPIRES ON:: 11/16/16 ORDER # VISITS AND/OR THROUGH DATE: 11/16/2016 Extended with new orders PLAN: Continue Plan of Care
--- NOTE | 2016-11-03 14:29 | RS.OPPTDN ---
Subjective Date of Note: 11/03/16 Visit #: 54 Date of Evaluation: 06/14/16 (Sx. 11-09-16) Payer Source: Workman's Comp Treatment Diagnosis: Right RCR Current Subjective/complaints:: Cheryl reports mild stiffness right shoulder joint, but continues strengthening and feels he is progressing. Pain Assessment - Pain Description Pain Location: Right shoulder Pain Description: occasional ache, mainly joint stiffness at end range. Current Pain Intensity: 0 at rest , mild soreness Interventions - Exercise/Activities/Manual Therapy Exercises/Activities: 54mins. In supine PROM/stretching all planes. Isometrics all directions, multiple reps. Multi-gym stations for scap retraction 40#,4s/ 10reps each. Overhead shelf reaching with 5# weight. Overhead press with right UE with 4# cuff weight. Large therapy ball on wall with 4# cuff weights to each wrist, 3sets. Body weight pull ups on overhead bars, 4s/5reps. Bodyblade with bilateral UE and with right in supine. Black theraband for overhead flex/ extension, multiple reps. Wall push-ups with large therapy ball. In supine on mat table, end range stretching of the right shoulder joint. Ocillating shoulder flex, scap, abd, ext, and "empty-can" positions, increased to 2s/ 10reps each with 5# at 90 degrees shoulder flex position. Overhead right shoulder press with 8#. Total minutes of Exercise: 54mins Manual Therapy: NA HOME EXERCISE PROGRAM: PROM and isometrics. Biceps/triceps strengthening with elbow at side. Isometric biceps, triceps, shoulder add and extension. Biceps curl with small weight. Cuff series. Red and green theraband shoulder x4 direct. Blue theraband scap retract. Red theraband for overhead flexion and extension. Resistive shoulder ROM with light weights. Ball on wall. - Charges Total Direct Minutes: 54mins Total Treatment Time: 54mins Procedures billed for this date of service:: EX4 Assessment: Patient progressing with strengthening with focus on activities above shoulder height. Patient Education: Home Exercise Program Patient demonstrates compliance with HEP?: Yes Short Term Goals Goal #1: Right AAROM shoulder flexion 120 degrees. Goal to be met by: 07/01/16 (100%) Progress towards Goal:: Met Goal #2: Right AAROM shoulder abduction 100 degrees. Goal to be met by: 07/01/16 (100%) Progress towards Goal:: Met Goal #3: Right shoulder AA external rotation 45 degrees. Goal to be met by: 07/01/16 (100%) Progress towards Goal:: Met Goal #4: Patient independent in beginning HEP. Goal to be met by: 07/01/16 (100%) Progress towards Goal:: Met Care Home Goals Goal #1: Patient independent with DC HEP. Goal to be met by: 10/14/16 (100%) Progress towards goal: Met Goal #2: Right shoulder AROM WFLs Goal to be met by: 10/14/16 Progress towards goal: Met Goal #3: Patient able to use RUE for all functional activities without pain. Goal to be met by: 11/16/16 (90%) Progress towards goal: Progressing Goal #4: Patient able to return to work without restrictions. Goal to be met by: 11/16/16 Progress towards goal: Not Met Plan PLAN OF CARE EXPIRES ON:: 11/16/16 ORDER # VISITS AND/OR THROUGH DATE: 11/16/2016 Extended with new orders PLAN: Continue Plan of Care
--- NOTE | 2016-11-04 14:13 | RS.OPPTDN ---
Subjective Date of Note: 11/04/16 Visit #: 55 Date of Evaluation: 06/14/16 (Sx. 11-09-16) Payer Source: Workman's Comp Treatment Diagnosis: Right RCR Current Subjective/complaints:: Rpeorts doing well with HEP and progressing daily activities at home. Agrees to continue to progress HEP and be seen twice per week next week preparing for follow up with physician and possible release to work. Pain Assessment - Pain Description Pain Location: Right shoulder Pain Description: occasional ache, mainly joint stiffness at end range. Current Pain Intensity: 0 at rest , mild soreness Interventions - Exercise/Activities/Manual Therapy Exercises/Activities: 55mins. In supine PROM/stretching all planes. Isometrics all directions, multiple reps. Black theraband for shoulder flexion, ext, IR, ER , biceps, and triceps. 4# dumbell for flexion and scaption. Multi-gym stations for scap retraction 40#, 4s/10reps each. Overhead shelf reaching with 5# weight. Overhead press with right UE with 4# cuff weight. Body weight pull ups on overhead bars, 4s/5reps. Bodyblade with bilateral UE and with right in supine. Black theraband for overhead flex/extension, multiple reps. Wall push- ups with large therapy ball. In supine on mat table, end range stretching of the right shoulder joint. Ocillating shoulder flex, scap, abd, ext, and "empty- can" positions, increased to 2s/10reps each with 5# at 90 degrees shoulder flex position. Overhead right shoulder press with 8#. Total minutes of Exercise: 55mins Manual Therapy: NA HOME EXERCISE PROGRAM: PROM and isometrics. Biceps/triceps strengthening with elbow at side. Isometric biceps, triceps, shoulder add and extension. Biceps curl with small weight. Cuff series. Red and green theraband shoulder x4 direct. Blue theraband scap retract. Red theraband for overhead flexion and extension. Resistive shoulder ROM with light weights. Ball on wall. - Charges Total Direct Minutes: 55mins Total Treatment Time: 55mins Procedures billed for this date of service:: EX4 Assessment: Patient progressing well and should be able to decrease to twice per week and progress HEP and daily activities at home. Patient Education: Body/Joint mechanics, Home Exercise Program, Home Safety, Activity Modification, Education of Plan of Care Patient demonstrates compliance with HEP?: Yes Short Term Goals Goal #1: Right AAROM shoulder flexion 120 degrees. Goal to be met by: 07/01/16 (100%) Progress towards Goal:: Met Goal #2: Right AAROM shoulder abduction 100 degrees. Goal to be met by: 07/01/16 (100%) Progress towards Goal:: Met Goal #3: Right shoulder AA external rotation 45 degrees. Goal to be met by: 07/01/16 (100%) Progress towards Goal:: Met Goal #4: Patient independent in beginning HEP. Goal to be met by: 07/01/16 (100%) Progress towards Goal:: Met Skilled Nursing Goals Goal #1: Patient independent with DC HEP. Goal to be met by: 10/14/16 (100%) Progress towards goal: Met Goal #2: Right shoulder AROM WFLs Goal to be met by: 10/14/16 Progress towards goal: Met Goal #3: Patient able to use RUE for all functional activities without pain. Goal to be met by: 11/16/16 (90%) Progress towards goal: Progressing Goal #4: Patient able to return to work without restrictions. Goal to be met by: 11/16/16 Progress towards goal: Not Met Plan PLAN OF CARE EXPIRES ON:: 11/16/16 ORDER # VISITS AND/OR THROUGH DATE: 11/16/2016 Extended with new orders PLAN: Continue Plan of Care
--- NOTE | 2016-11-08 11:59 | RS.OPPTDN ---
Subjective Date of Note: 11/08/16 Visit #: 56 Date of Evaluation: 06/14/16 (Sx. 11-09-16) Payer Source: Workman's Comp Treatment Diagnosis: Right RCR Current Subjective/complaints:: Patient reports increasing activities at home and feels he is progressing well with strength and overhead work. Pain Assessment - Pain Description Pain Location: Right shoulder Pain Description: occasional ache, mainly joint stiffness at end range. Current Pain Intensity: 0 at rest , mild soreness Interventions - Exercise/Activities/Manual Therapy Exercises/Activities: 58mins. In supine PROM/stretching all planes. Isometrics all directions, multiple reps. Multi-gym stations for scap retraction 40#, 4s/ 10reps each. Chest press 60#, 4s/10reps. Overhead shelf reaching with 5# weight. Ball toss off wall with 3# to each wrist, then overhead press with ball and weights. Body weight pull ups on overhead bars, 4s/5reps. Bodyblade with bilateral UE and with right in supine. Black theraband for overhead flex "baseball throw", multiple reps. Wall push-ups with large therapy ball. In supine on mat table, end range stretching of the right shoulder joint. Ocillating shoulder flex, scap, abd, ext, and "empty-can" positions, increased to 2s/15reps each with 5# at 90 degrees shoulder flex position. Overhead right shoulder press with 8#, increased to 2s/15reps. Total minutes of Exercise: 58mins Manual Therapy: NA HOME EXERCISE PROGRAM: PROM and isometrics. Biceps/triceps strengthening with elbow at side. Isometric biceps, triceps, shoulder add and extension. Biceps curl with small weight. Cuff series. Red and green theraband shoulder x4 direct. Blue theraband scap retract. Red theraband for overhead flexion and extension. Resistive shoulder ROM with light weights. Ball on wall. - Charges Total Direct Minutes: 58mins Total Treatment Time: 58mins Procedures billed for this date of service:: EX4 Assessment: Patient progressing well with over shoulder height strengthening. Patient Education: Home Exercise Program Patient demonstrates compliance with HEP?: Yes Short Term Goals Goal #1: Right AAROM shoulder flexion 120 degrees. Goal to be met by: 07/01/16 (100%) Progress towards Goal:: Met Goal #2: Right AAROM shoulder abduction 100 degrees. Goal to be met by: 07/01/16 (100%) Progress towards Goal:: Met Goal #3: Right shoulder AA external rotation 45 degrees. Goal to be met by: 07/01/16 (100%) Progress towards Goal:: Met Goal #4: Patient independent in beginning HEP. Goal to be met by: 07/01/16 (100%) Progress towards Goal:: Met Screen Machine Operator Goals Goal #1: Patient independent with DC HEP. Goal to be met by: 10/14/16 (100%) Progress towards goal: Met Goal #2: Right shoulder AROM WFLs Goal to be met by: 10/14/16 Progress towards goal: Met Goal #3: Patient able to use RUE for all functional activities without pain. Goal to be met by: 11/16/16 (90%) Progress towards goal: Progressing Goal #4: Patient able to return to work without restrictions. Goal to be met by: 11/16/16 Progress towards goal: Not Met Plan PLAN OF CARE EXPIRES ON:: 11/16/16 ORDER # VISITS AND/OR THROUGH DATE: 11/16/2016 Extended with new orders PLAN: Continue Plan of Care (Continue strengthening this week, preparing patient for return to work.)
--- NOTE | 2016-11-09 11:33 | RS.OPPTDN ---
Subjective Date of Note: 11/09/16 Visit #: 57 Date of Evaluation: 06/14/16 (Sx. 11--16) Payer Source: Workman's Comp Treatment Diagnosis: Right RCR Current Subjective/complaints:: Patient reports he has progressed well with strengthening and feels he has perform most home and work duties. He will see his physician next week for follow-up appointment. Pain Assessment - Pain Description Pain Location: Right shoulder Pain Description: occasional ache, mainly joint stiffness at end range. Current Pain Intensity: 0 at rest , mild soreness Interventions - Exercise/Activities/Manual Therapy Exercises/Activities: 60mins. Multi-gym stations for scap retraction 40#, 4s/ 10reps each. Chest press 60#, 4s/10reps. Overhead shelf reaching with 5# weight. Ball toss off wall with 3# to each wrist, then overhead press with ball and weights. Also, reaching for ball behind back 3# each wrist. Shot-putt throw with 3# to wrist and 1# ball. Body weight pull ups on overhead bars, 4s/5reps. Bodyblade with bilateral UE and with right in supine. Black theraband for overhead flex "baseball throw", multiple reps. In supine on mat table, PROM/ stretching all planes. Isometrics all directions, multiple reps. Ocillating shoulder flex, scap, abd, ext, and "empty-can" positions, increased to 2s/ 15reps each with 5# at 90 degrees shoulder flex position. Overhead right shoulder press with 8#, increased to 2s/15reps. Wall push-ups with large therapy ball. Review of mechanics and HEP. Total minutes of Exercise: 60mins Manual Therapy: NA HOME EXERCISE PROGRAM: PROM and isometrics. Biceps/triceps strengthening with elbow at side. Isometric biceps, triceps, shoulder add and extension. Biceps curl with small weight. Cuff series. Red and green theraband shoulder x4 direct. Blue theraband scap retract. Red theraband for overhead flexion and extension. Resistive shoulder ROM with light weights. Ball on wall. - Objective Findings Observations,measurements,etc.: Passive ROM to WFL and WNL with aggressive stretching. Patient demos active reaching to 165 degrees on average. MMT has improvement to 4 to 4+/5 with flexion and abd above shoulder height, 5/5 with extension and abduction. - Charges Total Direct Minutes: 60mins Total Treatment Time: 60mins Procedures billed for this date of service:: EX4 Assessment: Patient has progressed well and met his functional goals. He is performing lifting activites including overhead. Patient Education: Body/Joint mechanics, Home Exercise Program, Activity Modification, Education of Plan of Care Patient demonstrates compliance with HEP?: Yes Short Term Goals Goal #1: Right AAROM shoulder flexion 120 degrees. Goal to be met by: 07/01/16 (100%) Progress towards Goal:: Met Goal #2: Right AAROM shoulder abduction 100 degrees. Goal to be met by: 07/01/16 (100%) Progress towards Goal:: Met Goal #3: Right shoulder AA external rotation 45 degrees. Goal to be met by: 07/01/16 (100%) Progress towards Goal:: Met Goal #4: Patient independent in beginning HEP. 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 Goal to be met by: 10/14/16 (100%) Progress towards goal: Met Goal #2: Right shoulder AROM WFLs Goal to be met by: 10/14/16 Progress towards goal: Met Goal #3: Patient able to use RUE for all functional activities without pain. Goal to be met by: 11/16/16 (100%) Progress towards goal: Met Goal #4: Patient able to return to work without restrictions. Goal to be met by: 11/16/16 Progress towards goal: Not Met Comments: To be determined on follow-up appointment on 11-15-16. Plan PLAN OF CARE EXPIRES ON:: 11/16/16 ORDER # VISITS AND/OR THROUGH DATE: 11/16/2016 Extended with new orders PLAN: Return to physician (Patient will return to physician and discharge back to work is anticipated unless physician feels additional treatment is indicated. )
--- NOTE | 2016-12-02 14:46 | RS.QUICKDC ---
Discharge from PT Date of Discharge: 12/02/16 Number of Visits: 57 Reason for Discharge: Patient progressed well and benefitted from treatment. He met all treatment goals and was released to return to work. Please refer to last daily note for specifics of treatment and goals. Discharge with HEP.
== END 2016-11-16 ==
PROVIDERS: ATTEND Orthopaedic Surgery
DX: M25.511 Pain in right shoulder (principal)